=== PATIENT | male | born 1955 | race Caucasian/White ===

== ENCOUNTER 2019-10-10 12:35 | Outpatient (CLI) | payer BC, SELFPAY ==
--- NOTE | 2019-10-10 13:03 | MR_ITS ---
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 Pre and postcontrast imaging. Mild increase in cervical lordosis and thoracic kyphosis. Multilevel thoracic and cervical spondylosi s. Normal lumbar alignment. Benign hemangioma in L5. No marrow edema or fracture. Mild disc desiccation at L4-5 and L5-S1. Seen best on the sagittal STIR and postcontrast imaging is increased signal surrounding the RIGHT fac et joint at T10-11 and LEFT facet joint at T12-L1. There is soft tissue enhancement on the postcontra st sequences. Small amount of marrow edema with enhancement involving the RIGHT T11 pedicle. New sinc e 08/11/2018. Conus terminates normally at L1-2 disc level. L1-L2: Normal. L2-L3: Normal. L3-L4: Mild annular disc bulging and facet arthropathy. No stenosis. L4-L5: Mild annular disc bulging with a central disc protrusion. Mild ligamentum flavum hypertrophy a nd facet arthropathy. Mild central and subarticular recess stenosis due to disc and facet disease. Si milar to the prior study. L5-S1: Mild annular disc bulging. Disc bulging effaces and abuts the RIGHT S1 nerve root in the subar ticular recess. Mild bilateral foraminal narrowing. On the postcontrast imaging there is no evidence for discitis or osteomyelitis. MR/MR lumbar spine wo/w con [id number] IMPRESSION: 1. Mild bilateral foraminal stenosis at L5-S1. 2. Encroachment upon the RIGHT S1 nerve root in the subarticular recess as on the prior study. 3. Mild central and subarticular recess stenosis at L4-5 without progression. 4. Increased T2 signal with enhancement surrounding the RIGHT facet joint at T 10-11 and the LEFT facet joint at T12-L1 with marrow edema and enhancement in t he RIGHT T11 pedicle. Incomplete evaluation as only the lumbar spine was perfor med today. Possibility of an infectious process or inflammatory process such as synovitis or osteomyelitis should be considered. Recommend follow-up MRI thora cic spine with contrast to evaluate the facet joints and thoracic vertebral bod ies.
== END 2019-10-10 12:36 | disposition home or self-care (01) ==
LOC: RADSHAW 12:43
PROVIDERS: Family Provider Family Medicine; Visit Provider Psychiatry & Neurology Neuromuscular Medicine
DX: G62.9 Polyneuropathy, unspecified (principal); R53.1 Weakness; M48.07 Spinal stenosis, lumbosacral region; M48.061 Spinal stenosis, lumbar region without neurogenic claudication
CPT/HCPCS: 72158; A9579

== ENCOUNTER 2019-10-11 13:24 | Outpatient (CLI) | payer BC, SELFPAY ==
--- NOTE | 2019-10-11 | USCV_ITS ---
Zhao Shaq Age: 64 Gender: M : 1955 Exam Date: 10/11/2019 16:28 Ordering Phys: NOT ON FILE, DOCTOR XX Technologist: Exam Location: [facility] [place] Indication: WEAKNESS IN LEGS. PAIN. RIGHT LEFT Brachial 139.00 mmHg Brachial 132.00 mmHg Pressure (mmHg) Waveform Pressure (mmHg) Waveform Below Knee 118.00 MAT MAKER 96.00 DPA 108.00 Ankle/Brachial Index 0.78 49.00 Pre-Exercise Toe Pressure 53.00 0.35 Pre-Exercise Toe/Brachial Index 0.38 FINDINGS RT DPA: 93 RT MAT MAKER: NC Normal resting NIRALI on the right side Diminished resting NIRALI on the left side Normal resting TBI's bilaterally CONCLUSIONS Abnormal resting NIRALI and TBI on the left side, suggestive of moderate peripheral arterial disease Abnormal resting TBI with supernormal resting NIRALI on the right side, suggestive of moderate peripheral arterial disease, possibly involving the distal vessels Dr Michaelle Bey MD FAC (Electronically Signed) Final Date: 12 October 2019 01:12 S
--- NOTE | 2019-10-11 13:29 | MR_ITS ---
WS: [id number] MRI SACRUM with and without CONTRAST. COMPARISON: None Multiplanar, multisequence imaging is performed with and without contrast. Sagittal and axial T1 fat sat sequences post-ProHance 17 cc IV. No marrow signal abnormalities or fractures. There is mild atrophy involving the erector spinae muscl es at the level of the sacrum. No definite signal abnormalities or enhancement within the paraspinal muscles. No soft tissue in the sacral nerve roots. No osseous destruction. Mild diffuse thickening of the urinary bladder. MR/MR sacrum wo/w con [id number] IMPRESSION: 1. No mass identified. 2. Very mild atrophy and suspect mild myositis of the erector spinae muscles a t the level of the sacrum. 3. Diffuse bladder wall thickening. Consider cystitis or bladder outlet obstru ction.
== END 2019-10-11 13:25 | disposition home or self-care (01) ==
LOC: RADSHAW 13:25
PROVIDERS: Family Provider Family Medicine; PCP Family Medicine; Visit Provider Psychiatry & Neurology Neuromuscular Medicine
DX: G62.9 Polyneuropathy, unspecified (principal); R53.1 Weakness; R09.89 Other specified symptoms and signs involving the circulatory and respiratory systems; L81.9 Disorder of pigmentation, unspecified; M60.88 Other myositis, other site; M48.8X8 Other specified spondylopathies, sacral and sacrococcygeal region; M79.605 Pain in left leg; M79.604 Pain in right leg
CPT/HCPCS: 72158; 93923; A9579

== ENCOUNTER 2019-10-23 07:15 | Outpatient (CLI) | payer BC, SELFPAY | END 2019-10-23 07:16 | disposition home or self-care (01) | LOC: CDL 07:18 | PROVIDERS: Family Provider Family Medicine; PCP Family Medicine; Visit Provider Family Medicine | DX: Z76.89 Persons encountering health services in other specified circumstances (principal) ==

== ENCOUNTER 2019-10-24 08:36 | Outpatient (CLI) | payer BC, SELFPAY ==
--- NOTE | 2019-10-24 08:48 | MR_ITS ---
WS: [id number] MRI CERVICAL SPINE with and without contrast. HISTORY: PARALYSIS, NEUROPATHY COMPARISON: None available. Multiplanar, multisequence imaging of the cervical spine with and without contrast. Slight increase in cervical kyphosis. No fractures or marrow edema. T2 hemangioma. Signal within the cervical cord is normal. Visualized posterior fossa is unremarkable. Craniocervical junction, C1 and C2 relationship, odontoid process and soft tissues are normal. C2-C3: Normal. C3-C4: Small foraminal osteophytes with mild bilateral foraminal stenosis. C4-C5: Mild annular disc bulging with small bilateral foraminal osteophytes. Moderate LEFT foraminal narrowing. C5-C6: Mild annular disc bulging and osteophytic ridging. Mild encroachment upon the ventral thecal s ac. Moderate bilateral foraminal stenosis due to osteophyte disease. C6-C7: Diffuse annular disc bulging and osteophytic ridging. Smaller disc protrusion in the RIGHT for amen. Mild central and bilateral foraminal stenosis. C7-T1: Mild osteophytic ridging. No stenosis. No signal abnormalities or abnormal enhancement within the cervical cord. No facet joint enhancement. No discitis or osteomyelitis. MR/MR cervical spine wo/w [id number] IMPRESSION: 1. No cervical mass or abnormality noted within the cervical cord. 2. Multilevel annular disc bulging and vertebral body osteophytes. No severe c entral or foraminal stenosis. 3. Moderate bilateral foraminal stenosis at C5-6 due to disc osteophyte diseas e. 4. Moderate LEFT foraminal stenosis at C4-5 due to disc osteophyte disease.
== END 2019-10-24 08:37 | disposition home or self-care (01) ==
LOC: RADWPI 08:40
PROVIDERS: Family Provider Family Medicine; PCP Family Medicine; Visit Provider Family Medicine
DX: G83.9 Paralytic syndrome, unspecified (principal); G62.9 Polyneuropathy, unspecified; M48.02 Spinal stenosis, cervical region; M25.78 Osteophyte, vertebrae
CPT/HCPCS: 72156; A9579

== ENCOUNTER 2019-10-29 09:29 | Outpatient (CLI) | payer BC, SELFPAY ==
[2019-10-29 09:45] VITALS: BMI 26.4
--- NOTE | 2019-10-29 10:05 | ECG_ITS ---
NAME OF STUDY: LEXISCAN SESTAMIBI STRESS TEST INDICATION: Chest Pain NOTE: Please note that this is the electrocardiogram portion of the Lexiscan/Sestamibi stress test. The perfusion scan will be documented separately. DATA: Baseline heart rate was 92 beats per minute. Baseline blood pressure was 153/87 millimeters of mercury. Target heart rate was 158. Maximum heart rate achieved was 111. which was 71 % of the predicted target heart rate. Maximum blood pressure was 153/87 millimeters of mercury. The reason for ending the test was completion of the protocol. The patient did not experience any symptoms. ELECTROCARDIOGRAM: BASELINE: Sinus rhythm. Normal axis. Otherwise, no ST-T changes suggestive of ischemia noted. No arrhythmia noted. EXERCISE: After Lexiscan injection, no ST-T changes suggestive of ischemic noted. No arrhythmia noted. 1. EKG not suggestive of ischemia 2. Lexiscan injection unremarkable. 3. Perfusion scan will be documented separately. Electronically Signed On 10-29-2019 19:03:58 RN ANGIOGRAPHY by Tobi Smith M.D. [email or web address]
--- NOTE | 2019-10-29 10:06 | NMCV_ITS ---
NM marino perf SPECT r/s* [id number] Shaq Churchill Age: 64 Gender: M : 1955 Exam Date: 10/29/2019 10:30 Ordering Phys: eZb Brownlee MD Technologist: VINCE Escudero Exam Location: [facility] Indications: Chest pain STRESS TEST [facility] IMAGE PROTOCOL Rest/Stress 1 Lexiscan Day Radiopharmaceutical Dose (mCi) Administration Site Administered by Rest: Tc-99m 10.9 IV VINCE Escudero Sestamibi Stress:Tc-99m 32.6 IV VINCE Escudero Sestamibi Rest: 29-Oct-2019 60 Discovery 630 Stress: 29-Oct-2019 45 Discovery 630 0.4mg Lexiscan. Supine position only as patient was unable to lay prone. SPECT RESULTS Technical Quality: Excellent Raw Data Analysis: Normal Image Corrections: No attenuation or motion correction applied Summed Stress Score: 6 Summed Rest Score: 7 Summed Difference Score: 2 PERFUSION FINDINGS Large area of fixed perfusion defect noted from basal to distal inferior and basal to mid inferolateral wall suggestive of old myocardial infarction versus scarring. Please note that patient was not able to perform the prone images therefore cannot rule out artifact. EKG segment will be documented separately. FUNCTIONAL RESULTS (calculated via Gated SPECT) Stress Image LV EF (%): 57 Stress EDV (mL):88 TID: 1.06 Stress ESV (mL):38 Rest Image LV EF (%): 57 FUNCTIONAL FINDINGS: Basal to mid inferior wall hypokinesis IMPRESSIONS Large area of fixed perfusion defect noted from basal to distal inferior and basal to mid inferolateral wall suggestive of old myocardial infarction versus scarring. Please note that patient was not able to perform the prone images therefore cannot rule out artifact. EKG segment will be documented separately. Tobi Smith MD (Electronically Signed) Final Date: 29 October 2019 17:44 S
[2019-10-29] MEDS: regadenoson 0.4 Mg/5 ml Syringe IVP (11:53)
--- NOTE | 2019-10-29 11:54 | SUR.PREOP ---
Patient reports no pain or discomfort prior to the start of the procedure.
[2019-10-29 12:05] VITALS: BP 120/75; PULSE 99
== END 2019-10-29 09:30 | disposition home or self-care (01) ==
PROVIDERS: Family Provider Family Medicine; PCP Family Medicine; Visit Provider Family Medicine
DX: R07.9 Chest pain, unspecified (principal)
CPT/HCPCS: 78452; 93017; A9500; J2785

== ENCOUNTER 2019-11-20 09:20 | Outpatient (CLI) | payer BC, SELFPAY ==
--- NOTE | 2019-11-20 | XR_ITS ---
WS: [id number] CHEST 2 VIEWS HISTORY: SHORTNESS OF BREATH COMPARISON: 09/19/2019 Lungs: Benign granuloma in the central LEFT lung. Normal vasculature. No pneumonia. Slight elevation of the LEFT hemidiaphragm is stable. Cardiac size: Normal. Mediastinum/Aorta: Normal mediastinum. Bones: Normal. XR/XR chest 2V* [id number] IMPRESSION: Prior granulomatous disease. No pneumonia.
== END 2019-11-20 09:21 | disposition home or self-care (01) ==
LOC: RADOUTREAD 11:37
PROVIDERS: Family Provider Family Medicine; PCP Family Medicine; Visit Provider Nurse Practitioner Family
DX: Z76.89 Persons encountering health services in other specified circumstances (principal)

== ENCOUNTER 2019-11-20 17:29 | Inpatient (IN) | payer BC, SELFPAY ==
[2019-11-20] VITALS (23 sets, daily range): BP systolic 119–221; BP diastolic 80–157; PULSE 114–137; RESP 20–38; TEMP 36.8–38.8; O2SAT 67–99
--- NOTE | 2019-11-20 17:37 | ED_ITS ---
Entered by Liza Ross, acting as scribe for Nov 20, 2019 17:29 HPI - SOB/Dyspnea General: Chief Complaint: Shortness of Breath/Dyspnea Stated Complaint: cp Time Seen by Provider: 11/20/19 17:38 Source: patient Mode of arrival: wheelchair Limitations: no limitations History of Present Illness: HPI Narrative: 64 yo Male presents to ED with complaint of shortness of breath and chest pain. Pt states that he started feeling short of breath yesterday. Pt's oxygen saturation was in the 60s when he arrived to the ED. Pt states that he is also having chest pain. Pt was unable to speak in sentences. Per Pt's sister, the patient had a DVT about 3 weeks ago. MD elicited complaint: shortness of breath and chest pain Onset (ago): day(s) Timing: progressively worsening Severity: severe Exacerbating factors: exertion Relieving factors: oxygen Associated symptoms: Reports chest pain; Deny abdominal pain, fever(s), nausea, polydipsia, polyuria or vomiting Treatment prior to arrival: none Review of Systems General: Reports: 10 or more systems reviewed and unremarkable except in HPI and below Narrative: Unable to speak in full sentences, can only speak in a few words at a time Const: Denies: fever Eyes: Denies: change in vision or blurry vision ENMT: Denies: throat pain, enlarged tonsils, painful swallowing, hoarseness, mouth pain or swelling of lips/tongue Card: Reports: chest pain Resp: Reports: shortness of breath; Denies: productive cough or non-productive cough GI: Denies: abdominal pain, nausea or vomiting : Denies: flank pain, painful urination, urinary frequency, urinary urgency or urinary hesitancy Musc: Denies: neck pain, back pain or extremity swelling Skin/Breast: Denies: rash, itching or redness Neuro: Denies: headache, numbness in extremities or weakness in extremities Endo: Denies: excessive urination, excessive thirst or tired all the time [facility] ED PFSH: Family History Other CHF (congestive heart failure) Heart disease Social History Smoking and tobacco status: never smoked Physical Exam Const: COMMON NORMALS: average body habitus, oriented x3, no limitations, healthy appearing, alert and well nourished HENMT: COMMON NORMALS: normocephalic, head/scalp atraumatic and moist oral mucous membranes HEAD & SCALP: normocephalic and atraumatic Eye: COMMON NORMALS: PERRL, EOMs intact bilaterally, conjunctivae normal and no scleral icterus CONJUNCTIVA: Yes conjunctivae normal PUPIL: Yes PERRL Neck/C-Spine: COMMON NORMALS: full ROM, supple, no meningeal signs, no JVD and no carotid bruits Chest: COMMONS NORMALS: inspection of chest normal and palpation of chest normal Resp: COMMON NORMALS: percussion normal; negative for clear to auscultation bilaterally EFFORT & INSPECTION: No able to speak in complete sentences, Yes tachypneic, Yes respiratory distress, Yes labored and Yes uses accessory muscles AUSCULTATION: not clear to auscultation bilaterally and diminished lung sounds bilateral PERCUSSION: percussion normal Cardio: COMMON NORMALS: no JVD, regular rate, regular rhythm, S1 normal heart sound, S2 normal heart sound, no gallops, no clicks, no murmurs, no rub and peripheral pulses 2+ throughout RATE: regular rate and tachycardic RHYTHM: regular rhythm HEART SOUNDS: S1 normal and S2 normal PERIPHERAL PULSES: pulses 2+ throughout GI: COMMON NORMALS: normal to inspection, nondistended, normoactive bowel sounds, soft to palpation, non-tender, no hepatosplenomegaly, no masses and no bruits PALPATION: Yes soft and Yes no hepatosplenomegaly : COMMON NORMALS: Yes no CVA tenderness BLADDER/KIDNEY EXAM: Yes no CVA tenderness Back/Pelvis: COMMON NORMALS: no CVA tenderness Extremity: COMMON NORMALS: normal to inspection, full ROM, normal capillary refill, no calf tenderness and no pedal edema Neuro: COMMON NORMALS: oriented x3 SENSORIUM/ORIENTATION: Yes alert MENINGEAL SIGNS: Yes no meningeal signs Skin: COMMON NORMALS: no rashes or lesions noted, no wounds, skin turgor normal, no jaundice, no petechiae and no mottling GENERAL SKIN EXAM: no rashes or lesions noted and turgor normal Course Consultations: Consultation #1: Dr. Brownlee, the patient's primary care provider. He kindly accepted the patient to his service. Vital Signs: Vital signs: Vital Signs Pulse Rate 132 H 11/20/19 23:29 Respiratory Rate 26 H 11/20/19 23:29 Blood Pressure 173/109 11/20/19 23:00 Pulse Oximetry 93 11/20/19 23:29 MDM - SOB/Dyspnea MDM Narrative: Medical decision making narrative: This 64-year-old gentleman presents to the emergency department in respiratory failure. When he arrived his oxygen saturation was in the 60s on room air. He was only able to speak with a few words at a time. He was tachypneic, using his accessory muscles of respiration. A CTA was negative for PE, however showed a right-sided pneumonia. He also has a UTI and is positive for influenza. The patient was placed on a BiPAP on arrival to the emergency department as oxygen via nasal cannula did not improve his oxygen significantly. The patient improved rapidly on the BiPAP, his respiratory rate decreased, pallor and diaphoresis resolved. He is admitted to the ICU for further evaluation and management. Baseline troponin was elevated as well as the 2-hour period delta was significant. However on discussing with his primary care provider it was felt that this may have been secondary to demand ischemia from severe hypoxia. We will therefore wait for 6-hour troponin for further evaluation and to make a final determination to see if he needs cardiac work-up. Medical Records: Attestation: I reviewed the patient's medical records. Lab Data: Attestation: I reviewed the patient's lab results. Labs: Lab Results 11/20/19 11/20/19 11/20/19 Range/Units 17:40 17:40 17:40 WBC 20.4 H (4.0-10.0) 10^3/ uL RBC 5.63 H (4.1-5.3) 10^6/u L Hgb 14.3 (11.7-16.6) g/dL Hct 46.1 (42.0-52.0) % MCV 81.9 (80-94) fL MCH 25.4 L (28.0-34.0) pg MCHC 31.0 (30.0-36.0) g/dL RDW 13.9 (12.1-15.1) % Plt Count 421 H (130-400) 10^3/c mm MPV 9.8 (7.4-10.4) fL Neut % (Auto) 92.5 % Lymph % (Auto) 3.0 % Nelson % (Auto) 3.3 % Eos % (Auto) 0.2 % Baso % (Auto) 0.4 % Neut # (Auto) 18.9 H (1.8-7.7) 10^3/u L Lymph # (Auto) 0.6 L (0.8-4.8) 10^3/u L Nelson # (Auto) 0.7 (0.2-0.9) 10^3/u L Eos # (Auto) 0.0 (0.0-0.8) 10^3/u L Baso # (Auto) 0.1 (0.0-0.1) 10^3/u L Nucleated RBC % (a uto) 0 % Nucleated RBCs # 0.0 /100WBC D-Dimer 1.37 H (0-0.59) ug/mIFE U Specimen Type Sample Site ABG pH (7.35-7.45) ABG pCO2 (35-45) mmHg ABG pO2 (80.0-100.0) mmH g ABG HCO3 (22-26) mmol/L ABG Base Excess (-2.0-2.0) mmol/ L Ramu Test Hematocrit (42-52) % Hgb O2 Saturation (95-100) % Carboxyhemoglobin (0.4-20.1) %THgb Methemoglobin (0.4-1.5) % Total Hemoglobin (14-18) g/dL O2 Delivery Device FiO2 % Mass Spec ID Sodium 130 L (136-145) mmol/L Potassium 4.7 (3.5-5.1) mmol/L Chloride 87 L (98-107) mmol/L Carbon Dioxide 29 (22-29) mmol/L Anion Gap 18.7 (5-19) BUN 9 (8-23) mg/dL Creatinine 0.7 (0.7-1.2) mg/dL GFR Calculation 113.5 (90-130) mL/min Glucose 221 H (65-115) mg/dL POC Glucose (70-110) mg/dL Calcium 10.2 (8.5-10.5) mg/dL Total Bilirubin 0.6 (0.15-1.2) mg/dL AST 19 (0-40) U/L ALT 11 (0-41) U/L Alkaline Phosphata se 102 (40-130) IU/L Troponin T Baselin e (0-15) ng/mL Troponin T 120 Min [place] (0-15) ng/mL Delta Troponin T (0-10) ABS# NT-Pro-B Natriuret Pep 264 H (0-125) pg/mL Total Protein 7.8 (6.6-8.7) g/dL Albumin 4.3 (3.5-5.2) g/dL Globulin 3.5 (1.3-4.6) g/dL Urine Color (Yellow) Urine Appearance (CLEAR) Urine pH (5-7) Ur Specific Gravit y (1.005-1.030) Urine Protein (Negative) Urine Glucose (UA) (Normal) Urine Ketones (Negative) Urine Blood (Negative) Urine Nitrate (Negative) Urine Bilirubin (NEGATIVE) Urine Urobilinogen (Negative) mg/dL Ur Leukocyte [place] ase (Negative) Urine RBC (0-2) /hpf Urine WBC (0-5) /hpf Ur Squamous Epith Cells (0-5) Urine Bacteria (NONE) Influenza Type A A g (Negative) POC Influenza B Ag (Negative) 11/20/19 11/20/19 11/20/19 Range/Units 17:40 17:43 18:08 WBC (4.0-10.0) 10^3/ uL RBC (4.1-5.3) 10^6/u L Hgb (11.7-16.6) g/dL Hct (42.0-52.0) % MCV (80-94) fL MCH (28.0-34.0) pg MCHC (30.0-36.0) g/dL RDW (12.1-15.1) % Plt Count (130-400) 10^3/c mm MPV (7.4-10.4) fL Neut % (Auto) % Lymph % (Auto) % Nelson % (Auto) % Eos % (Auto) % Baso % (Auto) % Neut # (Auto) (1.8-7.7) 10^3/u L Lymph # (Auto) (0.8-4.8) 10^3/u L Nelson # (Auto) (0.2-0.9) 10^3/u L Eos # (Auto) (0.0-0.8) 10^3/u L Baso # (Auto) (0.0-0.1) 10^3/u L Nucleated RBC % (a uto) % Nucleated RBCs # /100WBC D-Dimer (0-0.59) ug/mIFE U Specimen Type Arterial Sample Site Radial, left ABG pH 7.27 L (7.35-7.45) ABG pCO2 67.6 H* (35-45) mmHg ABG pO2 256.0 H* (80.0-100.0) mmH g ABG HCO3 31.0 H (22-26) mmol/L ABG Base Excess 2.0 (-2.0-2.0) mmol/ L Ramu Test Pos Hematocrit 44.5 (42-52) % Hgb O2 Saturation 97.7 (95-100) % Carboxyhemoglobin 1.3 (0.4-20.1) %THgb Methemoglobin 0.9 (0.4-1.5) % Total Hemoglobin 14.5 (14-18) g/dL O2 Delivery Device Bipap FiO2 100.0 % Mass Spec ID ed Sodium (136-145) mmol/L Potassium (3.5-5.1) mmol/L Chloride (98-107) mmol/L Carbon Dioxide (22-29) mmol/L Anion Gap (5-19) BUN (8-23) mg/dL Creatinine (0.7-1.2) mg/dL GFR Calculation (90-130) mL/min Glucose (65-115) mg/dL POC Glucose 205 (70-110) mg/dL Calcium (8.5-10.5) mg/dL Total Bilirubin (0.15-1.2) mg/dL AST (0-40) U/L ALT (0-41) U/L Alkaline Phosphata se (40-130) IU/L Troponin T Baselin e 93 H (0-15) ng/mL Troponin T 120 Min [place] (0-15) ng/mL Delta Troponin T (0-10) ABS# NT-Pro-B Natriuret Pep (0-125) pg/mL Total Protein (6.6-8.7) g/dL Albumin (3.5-5.2) g/dL Globulin (1.3-4.6) g/dL Urine Color (Yellow) Urine Appearance (CLEAR) Urine pH (5-7) Ur Specific Gravit y (1.005-1.030) Urine Protein (Negative) Urine Glucose (UA) (Normal) Urine Ketones (Negative) Urine Blood (Negative) Urine Nitrate (Negative) Urine Bilirubin (NEGATIVE) Urine Urobilinogen (Negative) mg/dL Ur Leukocyte [place] ase (Negative) Urine RBC (0-2) /hpf Urine WBC (0-5) /hpf Ur Squamous Epith Cells (0-5) Urine Bacteria (NONE) Influenza Type A A g (Negative) POC Influenza B Ag (Negative) 11/20/19 11/20/19 11/20/19 Range/Units 18:25 19:58 20:35 WBC (4.0-10.0) 10^3/ uL RBC (4.1-5.3) 10^6/u L Hgb (11.7-16.6) g/dL Hct (42.0-52.0) % MCV (80-94) fL MCH (28.0-34.0) pg MCHC (30.0-36.0) g/dL RDW (12.1-15.1) % Plt Count (130-400) 10^3/c mm MPV (7.4-10.4) fL Neut % (Auto) % Lymph % (Auto) % Nelson % (Auto) % Eos % (Auto) % Baso % (Auto) % Neut # (Auto) (1.8-7.7) 10^3/u L Lymph # (Auto) (0.8-4.8) 10^3/u L Nelson # (Auto) (0.2-0.9) 10^3/u L Eos # (Auto) (0.0-0.8) 10^3/u L Baso # (Auto) (0.0-0.1) 10^3/u L Nucleated RBC % (a uto) % Nucleated RBCs # /100WBC D-Dimer (0-0.59) ug/mIFE U Specimen Type Sample Site ABG pH (7.35-7.45) ABG pCO2 (35-45) mmHg ABG pO2 (80.0-100.0) mmH g ABG HCO3 (22-26) mmol/L ABG Base Excess (-2.0-2.0) mmol/ L Ramu Test Hematocrit (42-52) % Hgb O2 Saturation (95-100) % Carboxyhemoglobin (0.4-20.1) %THgb Methemoglobin (0.4-1.5) % Total Hemoglobin (14-18) g/dL O2 Delivery Device FiO2 % Mass Spec ID Sodium (136-145) mmol/L Potassium (3.5-5.1) mmol/L Chloride (98-107) mmol/L Carbon Dioxide (22-29) mmol/L Anion Gap (5-19) BUN (8-23) mg/dL Creatinine (0.7-1.2) mg/dL GFR Calculation (90-130) mL/min Glucose (65-115) mg/dL POC Glucose (70-110) mg/dL Calcium (8.5-10.5) mg/dL Total Bilirubin (0.15-1.2) mg/dL AST (0-40) U/L ALT (0-41) U/L Alkaline Phosphata se (40-130) IU/L Troponin T Baselin e (0-15) ng/mL Troponin T 120 Min [place] 136.6 H (0-15) ng/mL Delta Troponin T 43.6 H* (0-10) ABS# NT-Pro-B Natriuret Pep (0-125) pg/mL Total Protein (6.6-8.7) g/dL Albumin (3.5-5.2) g/dL Globulin (1.3-4.6) g/dL Urine Color Yellow (Yellow) Urine Appearance Hazy A (CLEAR) Urine pH 5 (5-7) Ur Specific Gravit y 1.020 (1.005-1.030) Urine Protein 3+ H (Negative) Urine Glucose (UA) Norm (Normal) Urine Ketones 1+ H (Negative) Urine Blood 3+ H (Negative) Urine Nitrate Positive H (Negative) Urine Bilirubin Neg (NEGATIVE) Urine Urobilinogen Norm (Negative) mg/dL Ur Leukocyte [place] Trace H (Negative) Urine RBC 10-15 H (0-2) /hpf Urine WBC 25-40 H (0-5) /hpf Ur Squamous Epith Cells 0-4 H (0-5) Urine Bacteria 3+ H (NONE) Influenza Type A A g Positive H (Negative) POC Influenza B Ag Negative (Negative) Imaging Data^: CTA Chest: Radiologist's impression: [address] [address] [address] Scan Report Signed Patient: Shaq Churchill #: [id number] : 5Acct#:[id number] Age/Sex: 64 / MADM Date: 11/20/19 Loc: ERRoom/Bed: Attending Dr: Ordering Provider/Ordering MD: Cammy Philippe MD, [facility] [place] of Service: 11/20/19 Procedure(s): CT angio chest PE protcl [id number] Accession Number(s): [id number] Report Number: [id number] PROCEDURE INFORMATION: Exam: CT Angiography Chest With Contrast Exam date and time: 11/20/2019 6:47 PM Age: 64 years old Clinical indication: Shortness of breath; Additional info: Hypoxia, tachycardia TECHNIQUE: Imaging protocol: Computed tomographic angiography of the chest with intravenous contrast. 3D rendering: MIP and/or 3D reconstructed images were created by the technologist. Total DLP: 625.91 mGy-cm Radiation optimization: All CT scans at this facility use at least one of these dose optimization techniques: automated exposure control; mA and/or kV adjustment per patient size (includes targeted exams where dose is matched to clinical indication); or iterative reconstruction. Contrast material: OMNI 350; Contrast volume: 95 ml; Contrast route: IV; COMPARISON: CTA Chest-Pulmonary Emb [id number] 09/19/2019 5:04 PM FINDINGS: Pulmonary arteries: Normal. No pulmonary emboli. Aorta: Unremarkable. No aortic aneurysm. No aortic dissection. Lungs: Small regions of ground-glass opacity in the suprahilar right upper lobe and infrahilar left lower lobe. Calcified granuloma in the left lower lobe. Pleural space: Unremarkable. No pneumothorax. No pleural effusion. Heart: Unremarkable. No cardiomegaly. No pericardial effusion. Stomach and bowel: Small duodenal diverticulum. Lymph nodes: Mediastinal lymph nodes measure up to 10 mm short axis dimension. Calcified mediastinal and left hilar lymph nodes. Bones/joints: Mild thoracic scoliosis. Soft tissues: Unremarkable. CT/CT angio chest PE protcl [id number] IMPRESSION: 1. No evidence pulmonary embolus. 2. Small ground-glass opacities in the right upper and lower lobes could represent pneumonia or aspiration. 3. Prominent mediastinal lymph nodes are most likely reactive. Radiation Dose CTDIVOL = (mGy): DLP = 625.91 (mGy-cm) Dictated By:Kg Rojas Signed By:Kg RojasSignbaltazar Date/Time:11/20/192012 DD/ 10 EKG Data^: EKG 1: Attestation: I personally reviewed and interpreted this EKG as follows: EKG Interpretation Date: 11/20/19 EKG interpretation time: 17:49 Prior EKG tracings: not available for review Ischemic changes: q waves Interpretation: Sinus tachycardia. Heart rate 131. Q waves in 2 3 and aVF. Q wave in V3 V4 V5 and V6. EKG 2: Attestation: I personally reviewed and interpreted this EKG as follows: EKG Interpretation Date: 11/20/19 EKG interpretation time: 19:46 Prior EKG tracings: available for review Interpretation: Heart rate 115. Otherwise unchanged EKG. Sinus tachycardia EKG 3: Attestation: I personally reviewed and interpreted this EKG as follows: EKG Interpretation Date: 11/20/19 EKG interpretation time: 23:28 Prior EKG tracings: available for review Interpretation: Unchanged from earlier today. Critical Care Time Critical Care Time: Critical Care Time: Yes Total Critical Care Time: 30 Attestation: This case had a high probability of a clinically significant, sudden, or life threatening deterioration of this patient's condition which required my full and direct attention, intervention and personal management. Discharge Plan Discharge Admit Provider: Zeb Brownlee Coding Level of Care Code ED Tank Insulator Rubber for Chg Fwd Exam Comprehensive The documentation recorded by the Cody ferrara Carmen, accurately reflects the service I personally performed and the decisions made by me, Cammy Philippe MD, [facility] [place] Nov 20, 2019 17:29
[2019-11-20 17:47] LABS: Glucose Point of Care 205 mg/dL (70-110)
--- NOTE | 2019-11-20 17:52 | CTR_ITS ---
PROCEDURE INFORMATION: Exam: CT Angiography Chest With Contrast Exam date and time: 11/20/2019 6:47 PM Age: 64 years old Clinical indication: Shortness of breath; Additional info: Hypoxia, tachycardia TECHNIQUE: Imaging protocol: Computed tomographic angiography of the chest with intravenous contrast. 3D rendering: MIP and/or 3D reconstructed images were created by the technologist. Total DLP: 625.91 mGy-cm Radiation optimization: All CT scans at this facility use at least one of these dose optimization techniques: automated exposure control; mA and/or kV adjustment per patient size (includes targeted exams where dose is matched to clinical indication); or iterative reconstruction. Contrast material: OMNI 350; Contrast volume: 95 ml; Contrast route: IV; COMPARISON: CTA Chest-Pulmonary Emb [id number] 09/19/2019 5:04 PM FINDINGS: Pulmonary arteries: Normal. No pulmonary emboli. Aorta: Unremarkable. No aortic aneurysm. No aortic dissection. Lungs: Small regions of ground-glass opacity in the suprahilar right upper lobe and infrahilar left lower lobe. Calcified granuloma in the left lower lobe. Pleural space: Unremarkable. No pneumothorax. No pleural effusion. Heart: Unremarkable. No cardiomegaly. No pericardial effusion. Stomach and bowel: Small duodenal diverticulum. Lymph nodes: Mediastinal lymph nodes measure up to 10 mm short axis dimension. Calcified mediastinal and left hilar lymph nodes. Bones/joints: Mild thoracic scoliosis. Soft tissues: Unremarkable. CT/CT angio chest PE protcl [id number] IMPRESSION: 1. No evidence pulmonary embolus. 2. Small ground-glass opacities in the right upper and lower lobes could represent pneumonia or aspiration. 3. Prominent mediastinal lymph nodes are most likely reactive. Radiation Dose CTDIVOL = (mGy): DLP = 625.91 (mGy-cm)
--- NOTE | 2019-11-20 17:56 | ECG_ITS ---
Measurements Intervals [place] Rate: 131 P: 40 LA: 137 QRS: 22 QRSD: 106 T: 36 QT: 310 QTc: 459 SINUS TACHYCARDIA INFERIOR MYOCARDIAL INFARCTION , PROBABLY OLD [40+ ms Q WAVE AND/OR ST/T AB ABNORMALITY IN II/aVF] Compared to ECG 09/19/2019 16:41:34 Myocardial infarct finding now present Electronically Signed On 11-20-2019 19:47:01 FABRIC CUTTER by Michaelle Bey M.D. [id number]
[2019-11-20 18:15] LABS: Basophils # 0.1 10^3/uL (0.0-0.1); Basophils % 0.4 %; Eosinophils % 0.2 %; Hematocrit 46.1 % (42.0-52.0); Hemoglobin 14.3 g/dL (11.7-16.6); Lymphocytes # 0.6 10^3/uL (0.8-4.8); Mean Corpuscular Hemoglobin 25.4 pg (28.0-34.0); Mean Corpuscular Volume 81.9 fL (80-94); Mean Platelet Volume 9.8 fL (7.4-10.4); Monocytes # 0.7 10^3/uL (0.2-0.9); Monocytes % 3.3 %; Neutrophils # 18.9 10^3/uL (1.8-7.7); Neutrophils % 92.5 %; Nucleated Red Blood Cells % 0 %; Platelet Count 421 10^3/cmm (130-400); Red Blood Count 5.63 10^6/uL (4.1-5.3); Red Cell Distribution Width 13.9 % (12.1-15.1); White Blood Count 20.4 10^3/uL (4.0-10.0)
[2019-11-20 18:19] LABS: ABG PCO2 67.6 mmHg (35-45); ABG PH Result 7.27 (7.35-7.45); Arterial Blood Gas Hematocrit 44.5 % (42-52); Blood Gas Allen Test Pos; Blood Gas Sample Site Radial, left; Blood Gas Sample Type Arterial; Carboxyhemoglobin 1.3 %THgb (0.4-20.1); HGB O2 Sat 97.7 % (95-100); Methemoglobin 0.9 % (0.4-1.5); Oxygen Device BIPAP; Total Hemoglobin 14.5 g/dL (14-18)
[2019-11-20 18:30] LABS: Troponin(5th) Baseline 93 ng/mL (0-15)
[2019-11-20 18:36] LABS: Alanine Aminotransferase 11 U/L (0-41); Albumin Level 4.3 g/dL (3.5-5.2); Alkaline Phosphatase 102 IU/L (40-130); Anion Gap 18.7 (5-19); Aspartate Amino Transferase 19 U/L (0-40); Blood Urea Nitrogen 9 mg/dL (8-23); Calcium 10.2 mg/dL (8.5-10.5); Carbon Dioxide 29 mmol/L (22-29); Chloride 87 mmol/L (98-107); Globulin 3.5 g/dL (1.3-4.6); Glomerular Filtration Rate 113.5 mL/min (90-130); Glucose 221 mg/dL (65-115); NT Pro B Type Natriuretic Pept 264 pg/mL (0-125); Potassium 4.7 mmol/L (3.5-5.1); Sodium 130 mmol/L (136-145); Total Bilirubin 0.6 mg/dL (0.15-1.2); Total Protein 7.8 g/dL (6.6-8.7)
[2019-11-20 18:41] LABS: D Dimer 1.37 ug/mIFEU (0-0.59)
[2019-11-20 19:25] LABS: Influenza A by IFA Positive (Negative); Influenza B by IFA Negative (Negative)
[2019-11-20] MEDS: iohexol 350 mg/mL 100 mL Btl 95 ML IV (19:30)
--- NOTE | 2019-11-20 19:56 | ECG_ITS ---
Measurements Intervals [place] Rate: 115 P: 44 TN: 112 QRS: 38 QRSD: 93 T: 52 QT: 342 QTc: 473 SINUS TACHYCARDIA WITH SHORT TN INTERVAL ABNORMAL RHYTHM ECG Compared to ECG 11/20/2019 17:49:16 Short TN interval now present Myocardial infarct finding no longer present Electronically Signed On 11-21-2019 15:19:18 VICE PRESIDENT [employer]ES by Salomon Duncan M.D. [id number] f
[2019-11-20 20:31] LABS: Troponin 5 2HR 136.6 ng/mL (0-15); Troponin 5 2HR Delta 43.6 ABS# (0-10)
--- NOTE | 2019-11-20 20:32 | PC.NURSE ---
Received critical value 2 hour troponin of 136.6 and delta of 43.6, advised dr kelly.
[2019-11-20] MEDS: oseltamivir phosphate 75 mg Capsule PO (21:10)
[2019-11-20] MEDS: piperacillin-tazobactam 3.375 GM in sodium chloride 0.9% (plus) 50 ML IV (21:10)
[2019-11-20 21:24] LABS: Bilirubin Urine Neg (NEGATIVE); Blood Urine 3+ (Negative); Glucose Urine UA Norm (Normal); Ketones Urine 1+ (Negative); Leukocyte Esterase Urine Trace (Negative); Nitrate Urine Positive (Negative); Protein Urine 3+ (Negative); Urine Appearance Hazy (CLEAR); Urine Color Yellow (Yellow); Urobilinogen Urine Norm (Negative); pH Urine 5 (5-7)
[2019-11-20 21:27] LABS: Add Urine Culture? Yes; Bacteria Urine 3+; Squamous Epithelial Cell Urine 0-4 (0-5); WBC Urine 25-40 /hpf (0-5)
[2019-11-20] MEDS: nitroglycerin 1 gm/inch oint Pkt 1 INCH TOPICAL (21:59)
[2019-11-20] MEDS: ondansetron 2 mg/ML SDV 2 mL 4 MG IVP (21:59)
[2019-11-20] MEDS: sodium chloride 0.9% 1,000 ML 100 ML IV (22:22)
[2019-11-20] MEDS: enoxaparin 40 mg/0.4 mL Syringe SUBCUT (22:22)
[2019-11-20] MEDS: ipratropium-albuterol 3 mL Neb INHALATION (23:28)
--- NOTE | 2019-11-20 23:56 | ECG_ITS ---
Measurements Intervals [place] Rate: 132 P: 56 NM: 108 QRS: 53 QRSD: 97 T: 63 QT: 327 QTc: 485 SINUS TACHYCARDIA WITH SHORT NM INTERVAL MODERATE ST DEPRESSION [0.05+ mV ST DEPRESSION] Compared to ECG 11/20/2019 17:49:16 Short NM interval now present ST (T wave) deviation now present Myocardial infarct finding no longer present Electronically Signed On 11-21-2019 15:20:54 RETAIL AREA MANAGER by Salomon Duncan M.D. [id number]
[2019-11-21] VITALS (38 sets, daily range): BP systolic 96–179; BP diastolic 60–118; PULSE 105–134; RESP 13–31; TEMP 36.9–39; O2SAT 86–97
[2019-11-21 00:19] LABS: ABG PH Result 7.23 (7.35-7.45); Arterial Blood Gas Hematocrit 40.1 % (42-52); Base Excess ABG 2.3 mmol/L (-2.0-2.0); Blood Gas Allen Test Pos; Blood Gas Sample Site Radial, right; Blood Gas Sample Type Arterial; HCO3 ABG 32.2 mmol/L (22-26); Oxygen Device BIPAP; PO2 ABG 71.2 mmHg (80.0-100.0)
[2019-11-21 00:20] LABS: ABG PCO2 77.1 mmHg (35-45)
--- NOTE | 2019-11-21 00:29 | PC.NURSE ---
2338 rcvd pt via stretcher from ed. bilat piv SL , pt on bipap during transport. labored respirations c retractions noted. pt able to speak in 1-2 word sentences. ax t.101.[address] tovar. order for abgs now and pr tylenol rcvd. [address] tovar. rt in icu. suggested avap mode on bipap x 1 hr prior to deciding to intubated. rt to make changes.ami lozada rn.
[2019-11-21] MEDS: sodium chloride 0.9% 1,000 ML 100 ML IV ×2 (00:44→10:59)
[2019-11-21] MEDS: acetaminophen 650 mg Supp PR (00:45)
[2019-11-21] MEDS: levofloxacin-dextrose 5 % 750 MG/150 ML PREMIX 150 MG IV (00:45)
[2019-11-21 02:05] LABS: Arterial Blood Gas Hematocrit 38.3 % (42-52); Base Excess ABG 4.5 mmol/L (-2.0-2.0); Blood Gas Allen Test Pos; Blood Gas Sample Site Radial, right; Blood Gas Sample Type Arterial; Blood Gas Tidal Volume 0.55; HCO3 ABG 32.9 mmol/L (22-26); Oxygen Device BIPAP
[2019-11-21 02:06] LABS: ABG PCO2 67.5 mmHg (35-45)
--- NOTE | 2019-11-21 02:26 | PC.NURSE ---
abgs sent to dr. tovar. will continue avap mode on bipap mireya alaniz.
[2019-11-21 04:31] LABS: Basophils % 0.3 %; Eosinophils % 0.1 %; Hematocrit 37.8 % (42.0-52.0); Hemoglobin 11.4 g/dL (11.7-16.6); Lymphocytes # 0.5 10^3/uL (0.8-4.8); Lymphocytes % 4.1 %; Mean Corpuscular HGB Conc 30.2 g/dL (30.0-36.0); Mean Corpuscular Hemoglobin 24.4 pg (28.0-34.0); Mean Corpuscular Volume 80.8 fL (80-94); Mean Platelet Volume 10.2 fL (7.4-10.4); Monocytes # 0.6 10^3/uL (0.2-0.9); Monocytes % 4.7 %; Neutrophils # 10.7 10^3/uL (1.8-7.7); Neutrophils % 90.2 %; Nucleated Red Blood Cells % 0 %; Platelet Count 284 10^3/cmm (130-400); Red Blood Count 4.68 10^6/uL (4.1-5.3); Red Cell Distribution Width 13.9 % (12.1-15.1); White Blood Count 11.8 10^3/uL (4.0-10.0)
[2019-11-21 04:45] LABS: Anion Gap 14.7 (5-19); Blood Urea Nitrogen 10 mg/dL (8-23); Calcium 9.4 mg/dL (8.5-10.5); Carbon Dioxide 29 mmol/L (22-29); Chloride 91 mmol/L (98-107); Glomerular Filtration Rate 167.4 mL/min (90-130); Glucose 187 mg/dL (65-115); Osmolality Calculated 271 mOsm/kg (285-295); Potassium 4.7 mmol/L (3.5-5.1); Sodium 130 mmol/L (136-145)
[2019-11-21] MEDS: piperacillin-tazobactam 3.375 GM in sodium chloride 0.9% (plus) 50 ML IV ×3 (04:56→20:43)
[2019-11-21 05:50] LABS: ABG PH Result 7.27 (7.35-7.45); Arterial Blood Gas Hematocrit 37.4 % (42-52); Blood Gas Allen Test Pos; Blood Gas Sample Site Radial, right; Blood Gas Sample Type Arterial; Oxygen Device BIPAP; PO2 ABG 84.1 mmHg (80.0-100.0)
[2019-11-21 05:51] LABS: ABG PCO2 72.6 mmHg (35-45)
--- NOTE | 2019-11-21 06:17 | PC.NURSE ---
phone call from dr. tovar update provided. jazmin continue current care. mireya alaniz.
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
[2019-11-21] MEDS: oseltamivir phosphate 75 mg Capsule PO ×2 (08:56→16:11)
[2019-11-21] MEDS: aspirin 325 mg EC Tablet PO (08:57)
--- NOTE | 2019-11-21 10:20 | PC.CHAP ---
Pastoral Care Encounter/Spiritual Assessment Type of Contact [] Declined field education director visit [] Patient/Family/Request visit [] Outpatient visit [] Follow-up visit [] Physician referral [] Code/Alert [x] Routine visit [] Staff referral [] Actively dying [] Patient sleeping [x] Family support [] [] Out of room [] Palliative care [] [] Receiving care in room [] Pre-surgical visit [] Trauma [] Long length of stay [x] ICU visit [] Other: Relational/Emotional Strength [] Patient feels connected with others/family/visitors/staff [] Distress [] Loneliness/isolation [] Abandonment Spirituality of Patient [] Person of Tammie [] Attends Restoration of their Tammie [x] Believes in Prayer [] Reads Bible or Judaism materials [] There are Spiritual issues to be addressed Franchise Business Consultant Interventions [x] Prayer [] Active listening [] Non-anxious presence [] Spiritual/emotional support [] Crisis/trauma care [] Spiritual counseling [] Bereavement support [] Provided bereavement packet [] Provided Bible/devotional materials [] Provided toy/stuffed animal, coloring book to patient or family member [] Provided Communion [] Anointing/[place] [] Salvation [x] Completed spiritual assessment [] Other: Impact on Illness or Injury [] Angry [] Fearful [] Anxious [] Often cries [] Exhaustion [] Unable to work [] Unable to attend episcopalian [] Unable to walk/stand [] Unable to read [] Unable to drive [] Unable to eat/drink [] Unable to sleep [] Unable to be with family [] Patient intubated [x] Other: mask and gloves required Summary patient on respirator. patient's son present. Time spent with patient 10min
--- NOTE | 2019-11-21 11:09 | PM.CONSULT ---
Providers/Reason For Consult Consulting Physican/Specialty*: Dr. Peters, Cardiology Reason for Consult*: Abnormal troponin Attending Physician: Zeb Brownlee MD Primary Care Provider: Zeb Brownlee MD History of Present Illness History of Present Illness Shaq Churchill is a 64 year old male with past medical history of hypertension, hyperlipidemia, diabetes mellitus type 2, neuropathy presented to the hospital with fever worsening cough and shortness of breath. EKG showed sinus tachycardia with moderate ST depression. CT angiogram of chest showed no evidence of pulmonary embolism. He was noted to have small ground glass opacities in right upper and lower lobes with prominent mediastinal lymph nodes. Baseline troponin T of 93 ng/ml that increased to 137 ng/ml and 6 hour troponin I to 151 ng/ml. NT proBNP of 264. He was also found to be Inflenza A +. I have been asked to evaluate the patient for elevated troponin and history of chest discomfort. At the time of examination patient is on BiPAP with oxygen saturation ranging in low 90s. His other problem include progressively worsening neuropathy, polyarthritis and worsening YOUNGER. He has undergone neurological and rheumatological work up without any specific diagnosis so far. Review of Systems General: Reports: ROS unobtainable due to medical condition (except as mentioned below) Const: Reports: fever, body aches and malaise Card: Reports: chest pain (with coughing) and edema Resp: Reports: shortness of breath Meds/Allergies Home Medications and Allergies Home Medications Medication Instructions Recorded Confirmed Type albuterol sulfate 2 puff INHALATION QID PRN 11/21/19 11/21/19 History doxycycline hyclate 1 tab PO BID 11/21/19 11/21/19 History hydrocodone-acetaminophen See Rx Instructions .ROUTE 11/21/19 11/21/19 History .COMPLEX PRN ondansetron 4 mg PO Q6H PRN 11/21/19 11/21/19 History prednisone 20 mg PO DAILY 11/21/19 11/21/19 History tamsulosin 0.4 mg PO BEDTIME 11/21/19 11/21/19 History temazepam 15 mg PO BEDTIME PRN 11/21/19 11/21/19 History Allergies Allergy/AdvReac Type Severity Reaction Status Date / Time No Known Allergies Allergy Verified 11/20/19 17:42 Current Medications Current Medications Generic Name Dose Route Start Last Admin Trade Name Freq PRN Reason Stop Dose Admin Acetaminophen 650 mg 11/21/19 00:13 11/21/19 00:45 Tylenol VT 650 mg Q6H PRN Administration FEVER Aspirin 325 mg 11/21/19 09:00 11/21/19 08:57 Aspirin Ec PO 325 mg DAILY GUDELIA Administration Enoxaparin Sodium 40 mg 11/21/19 00:30 11/21/19 00:43 Lovenox SUBCUT Not Given Q24H GUDELIA Sodium Chloride 1,000 mls @ 100 mls/hr 11/20/19 22:15 11/21/19 10:59 Sodium Chloride 0.9% IV 100 mls/hr .Q10H GUDELIA Administration Piperacillin Sod/Tazobactam 50 mls @ 12.5 mls/hr 11/21/19 05:00 11/21/19 09:12 Sod 3.375 gm/ Sodium Chloride IV Infused Q8H GUDELIA Infusion Protocol Levofloxacin/Dextrose 750 mg in 150 mls @ 150 mls/hr 11/21/19 00:15 11/21/19 01:45 Levaquin-D5w IV Infused Q24H GUDELIA Infusion Protocol Acetaminophen 1,000 mg in 100 mls @ 400 mls/hr 11/21/19 07:54 11/21/19 09:11 Ofirmev IV Infused Q8H PRN Infusion FEVER >101 Oseltamivir Phosphate 75 mg 11/21/19 09:00 11/21/19 08:56 Tamiflu PO 75 mg BID GUDELIA Administration PFSH Acute PFSH: Medical History Achilles rupture Diabetes Hypertension Neuropathy Patella fracture Family History Other CHF (congestive heart failure) Heart disease Social History Smoking and tobacco status: never smoked Vitals/I&O/Wt Last Vital Signs Temp 100.0 F H 11/21/19 10:00 Pulse 106 H 11/21/19 11:02 Resp 13 11/21/19 10:00 BP 115/66 11/21/19 10:00 Pulse Ox 96 11/21/19 11:02 11/20/19 11/21/19 11/21/19 22:59 06:59 14:59 Intake Total 1200 / 1200 1150 / 1150 Output Total 800 / 800 Balance 400 / 400 1150 / 1150 Weight last 48 hrs Weight 210 lb Physical Exam Narrative: EXAM NARRATIVE: GENERAL: Averagely built and averagely nourished, currently on BiPAP HEENT: Pupils equal round reactive to light. No pallor or icterus. NECK: No JVD, No carotid bruit. CARDIOVASCULAR SYSTEM: S1-S2 regular. No murmur rubs or gallops. RESPIRATORY SYSTEM: Chest clear to auscultation anteriorly, No wheezing, intermittent rales on ABDOMEN: Soft, nontender and nondistended. Normal bowel sounds present. EXTREMITIES: No cyanosis or clubbing. trace-1+ left>right pedal edema. CLAIMS CLERK: Patient is alert oriented ?3. No focal neurological deficits. SKIN: Normal turgor and temperature. PSYCH: Normal insight and judgment. Urinary Catheter Management^: Moore: Cath Placed During This Visit: yes Urethral Indwelling: No Reason for Continuing Indwelling Catheter: Accurate Measurement of Urinary Output in Critically Ill Patients Urinary Catheter Date of Insertion: 11/20/19 Urinary Catheter Time of Insertion: 20:56 Data Labs: Other Labs: Laboratory Tests 11/20/19 11/20/19 11/20/19 17:40 17:40 17:40 D-Dimer 1.37 H ABG pH ABG pCO2 ABG pO2 ABG HCO3 O2 Delivery Device FiO2 Calculated Osmolal ity Calcium Total Bilirubin 0.6 AST 19 ALT 11 Alkaline Phosphata se 102 Troponin I 6 Hour Troponin I Hi Sens Del Troponin T Baselin e 93 H Troponin T 120 Min [place] Troponin T NT-Pro-B Natriuret Pep 264 H Influenza Type A A g POC Influenza B Ag 11/20/19 11/20/19 11/20/19 18:25 19:58 23:58 D-Dimer ABG pH ABG pCO2 ABG pO2 ABG HCO3 O2 Delivery Device FiO2 Calculated Osmolal ity Calcium Total Bilirubin AST ALT Alkaline Phosphata se Troponin I 6 Hour 151.0 H Troponin I Hi Sens Del 58.0 H* Troponin T Baselin e Troponin T 120 Min [place] 136.6 H [place] Troponin T 43.6 H* NT-Pro-B Natriuret Pep Influenza Type A A g Positive H POC Influenza B Ag Negative 11/21/19 11/21/19 11/21/19 01:30 03:45 05:38 D-Dimer ABG pH 7.27 L ABG pCO2 72.6 H* ABG pO2 84.1 ABG HCO3 33.0 H O2 Delivery Device Bipap FiO2 50.0 Calculated Osmolal ity 271 L Calcium 9.4 Total Bilirubin AST ALT Alkaline Phosphata se Troponin I 6 Hour Troponin I Hi Sens Del Troponin T Baselin e Troponin T 120 Min [place] Troponin T NT-Pro-B Natriuret Pep Influenza Type A A g POC Influenza B Ag Micro: Micro: Microbiology 11/20/19 18:10 Blood Culture - Pr eliminary Blood SPECIMEN [place] 11/20/19 17:52 Blood Culture - Pr eliminary Blood SPECIMEN [facility] Imaging^: CTA Chest: Radiologist's impression: IMPRESSION: 1. No evidence pulmonary embolus. 2. Small ground-glass opacities in the right upper and lower lobes could represent pneumonia or aspiration. 3. Prominent mediastinal lymph nodes are most likely reactive. Other Imaging: I personally reviewed and interpreted this imaging study as follows: My impression: Lexiscan MPI (10/29/2019) PERFUSION FINDINGS Large area of fixed perfusion defect noted from basal to distal inferior and basal to mid inferolateral wall suggestive of old myocardial infarction versus scarring. Please note that patient was not able to perform the prone images therefore cannot rule out artifact. EKG segment will be documented separately. FUNCTIONAL RESULTS (calculated via Gated SPECT) Stress Image LV EF (%): 57 Stress EDV (mL):88 TID: 1.06 Stress ESV (mL):38 Rest Image LV EF (%): 57 FUNCTIONAL FINDINGS: Basal to mid inferior wall hypokinesis IMPRESSIONS Large area of fixed perfusion defect noted from basal to distal inferior and basal to mid inferolateral wall suggestive of old myocardial infarction versus scarring. Please note that patient was not able to perform the prone images therefore cannot rule out artifact. EKG segment will be documented separately Doppler Ulrasound of LE: Radiologist's impression: (10/11/19) Indication: WEAKNESS IN LEGS. PAIN. RIGHT LEFT Brachial 139.00 mmHg Brachial 132.00 mmHg Pressure (mmHg) Waveform Pressure (mmHg) Waveform Below Knee 118.00 IT OPERATIONS ANALYST 96.00 DPA 108.00 Ankle/Brachial Index 0.78 49.00 Pre-Exercise Toe Pressure 53.00 0.35 Pre-Exercise Toe/Brachial Index 0.38 FINDINGS RT DPA: 93 RT IT OPERATIONS ANALYST: NC Normal resting NIRALI on the right side Diminished resting NIRALI on the left side Normal resting TBI's bilaterally CONCLUSIONS Abnormal resting NIRALI and TBI on the left side, suggestive of moderate peripheral arterial disease Abnormal resting TBI with supernormal resting NIRALI on the right side, suggestive of moderate peripheral arterial disease, possibly involving the distal vessels A&P Assessment and plan (1) Respiratory failure: Currently on BiPAP support. Status: Acute Qualifiers: Chronicity: acute Respiratory failure complication: hypoxia and hypercapnia Qualified Code(s): J96.01 - Acute respiratory failure with hypoxia; J96.02 - Acute respiratory failure with hypercapnia Code(s): J96.90 - Respiratory failure, unspecified, unspecified whether with hypoxia or hypercapnia (2) Pneumonia: On antibiotics as per primary team. Status: Acute Code(s): J18.9 - Pneumonia, unspecified organism (3) Influenza due to influenza virus, type A, human: On Tamiflu Status: Acute Code(s): J10.1 - Influenza due to other identified influenza virus with other respiratory manifestations (4) Non-ST elevation AL (NSTEMI): This is likely a non-ST elevation acute coronary syndrome type II in setting of hypoxia and respiratory distress. -Recent stress test with fixed perfusion defect of entire inferior and basal to mid inferolateral kessler suggestive for myocardial infarction versus scarring. In absence of prone imaging artifact could not be ruled out. No evidence of ischemia on EKG. -No further testing warranted at this point. Once respiratory status improves, will get echocardiogram. -Once patient recovers from pneumonia and influenza may consider coronary angiogram as an outpatient, if patient continues to be symptomatic. Status: Acute Code(s): I21.4 - Non-ST elevation (NSTEMI) myocardial infarction (5) Diabetes: Status: Acute Qualifiers: Diabetes mellitus type: type 2 Code(s): E11.9 - Type 2 diabetes mellitus without complications Additional A&P Information Leucocytosis Anemia Hyponatremia Polyarthritis Neuropathy History of DVT in August 2019 History of vitamin B12 deficiency Thank you for allowing me to participate in patient's care. Please feel free to call with questions or concerns. 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
--- NOTE | 2019-11-21 19:43 | PC.NURSE ---
bedside report rcvd pt resting on bipap 18/10 pt answering questions appropriately . family at [facility]. update provided. mireya alaniz.
[2019-11-21] MEDS: morphine 4 mg/mL SDV 1 mL 2 MG IVP (20:37)
--- NOTE | 2019-11-21 21:08 | PM.CONSULT ---
Providers/Reason For Consult Consulting Physican/Specialty*: Pulmonary critical care medicine Reason for Consult*: Acute on chronic hypercapnic respiratory failure and new onset hypoxia Attending Physician: Zeb Brownlee MD Primary Care Provider: Zeb Brownlee MD History of Present Illness History of Present Illness Shaq Churchill is a 64 year old male with a complicated past medical history. In this hospital admission, the patient is being admitted with influenza and questionable pneumonia. However, the patient has developed profound acute on chronic hypercapnic respiratory failure requiring persistent noninvasive positive pressure ventilation. On the CT angiogram of his chest, there is minimal groundglass opacity in the right upper lobe which is inconsistent with bacterial pneumonia however this could represent some degree of infiltrate secondary to viral pneumonia or pneumonitis secondary to an aspiration event. The patient is covered with broad-spectrum antibiotic. The complicated part of his history includes his past medical history. The patient had been functioning completely about a year and a half ago. The patient then started developing progressive neuropathy. According to medical record, initially the neurologist thought that the neuropathy was secondary to diabetes however this was ruled out as his diabetes was very well controlled. The patient continued to have progressive bilateral lower extremity weakness and started having severe exertional shortness of breath with development of hypoxia with minimal exertion. The patient had financial difficulties and did not have regular follow-up with his neurologist. So far the patient has seen neurologist in [place] and a neurologist in [place]. Unfortunately I do not have any records from these visits but from what the patient tells me it appears that the patient had EMGs performed and his sister who works in the ICU also stated that he had muscle biopsies done. The patient has received treatment with doxycycline and corticosteroid without any significant benefit. I evaluated the patient in ICU today. The patient was on noninvasive positive pressure ventilation however he was able to have a conversation with me I had put the patient on BiPAP with a reduced inspiratory positive airway pressure however the patient became visibly tachypneic and tired. I had performed a bedside ultrasound of his diaphragm and the patient has minimal diaphragmatic movement. I have reviewed his CT scans from the past there is no evidence of any interstitial lung disease. The etiology for his respiratory failure during this admission is increased mechanical demand of the respiratory muscles in the setting of influenza infection with profound diaphragmatic and weakness of inspiratory muscles. Unfortunately, the cause of this weakness is unclear at this time. The patient has undergone extensive rheumatologic work-up in the past however I do not have any of these records. Interestingly, the patient has developed polyarthritis. Review of Systems Narrative: The patient complains of shortness of breath however I am unable to obtain a complete review of system because of his clinical condition. Meds/Allergies Home Medications and Allergies Home Medications Medication Instructions Recorded Confirmed Type albuterol sulfate 2 puff INHALATION QID PRN 11/21/19 11/21/19 History doxycycline hyclate 1 tab PO BID 11/21/19 11/21/19 History hydrocodone-acetaminophen See Rx Instructions .ROUTE 11/21/19 11/21/19 History .COMPLEX PRN ondansetron 4 mg PO Q6H PRN 11/21/19 11/21/19 History prednisone 20 mg PO DAILY 11/21/19 11/21/19 History tamsulosin 0.4 mg PO BEDTIME 11/21/19 11/21/19 History temazepam 15 mg PO BEDTIME PRN 11/21/19 11/21/19 History Allergies Allergy/AdvReac Type Severity Reaction Status Date / Time No Known Allergies Allergy Verified 11/20/19 17:42 Current Medications Current Medications Generic Name Dose Route Start Last Admin Trade Name Freq PRN Reason Stop Dose Admin Acetaminophen 650 mg 11/21/19 00:13 11/21/19 00:45 Tylenol [place] 650 mg Q6H PRN Administration FEVER Aspirin 325 mg 11/21/19 09:00 11/21/19 08:57 Aspirin Ec PO 325 mg DAILY GUDELIA Administration Enoxaparin Sodium 40 mg 11/21/19 00:30 11/21/19 00:43 Lovenox SUBCUT Not Given Q24H GUDELIA Piperacillin Sod/Tazobactam 50 mls @ 12.5 mls/hr 11/21/19 05:00 11/21/19 20:43 Sod 3.375 gm/ Sodium Chloride IV 12.5 mls/hr Q8H GUDELIA Administration Protocol Levofloxacin/Dextrose 750 mg in 150 mls @ 150 mls/hr 11/21/19 00:15 11/21/19 01:45 Levaquin-D5w IV Infused Q24H GUDELIA Infusion Protocol Acetaminophen 1,000 mg in 100 mls @ 400 mls/hr 11/21/19 07:54 11/21/19 20:37 Ofirmev IV 400 mls/hr Q8H PRN Administration FEVER >101 Morphine Sulfate 2 mg 11/21/19 00:16 11/21/19 20:37 Morphine IVP 2 mg Q4H PRN Administration SEVERE PAIN Oseltamivir Phosphate 75 mg 11/21/19 09:00 11/21/19 16:11 Tamiflu PO 75 mg BID GUDELIA Administration PFSH Acute PFSH: Medical History Achilles rupture Diabetes Hypertension Neuropathy Patella fracture Family History Other CHF (congestive heart failure) Heart disease Social History Smoking and tobacco status: never smoked Vitals/I&O/Wt Last Vital Signs Temp 98.5 F 11/21/19 18:00 Pulse 119 H 11/21/19 20:13 Resp 24 H 11/21/19 20:37 BP 96/66 11/21/19 18:00 Pulse Ox 96 11/21/19 20:13 11/21/19 11/21/19 11/21/19 06:59 14:59 22:59 Intake Total 1200 / 1200 1150 / 1150 290 / 1440 Output Total 800 / 800 700 / 700 Balance 400 / 400 1150 / 1150 -410 / 740 Weight last 48 hrs Weight 210 lb Physical Exam Narrative: EXAM NARRATIVE: General: Patient is awake alert and oriented, tachypneic and in mild distress, able to have a conversation HEENT: Pupil bilateral symmetric, light and accommodation reflex present, extraocular muscle movement intact, no deformity of the nose Neck: No JVD, no cervical or supraclavicular lymphadenopathy. Respiratory: Auscultation: Reduced breath sound bilaterally, rhonchi more prominent on the right side, no crackles or wheezing Cardiovascular: Regular rate and rhythm, tachycardia, S1-S2 present, no murmur, no right ventricular heave, no peripheral edema. Abdomen: Soft, nontender, nondistended, positive bowel sound. No palpable organomegaly. Musculoskeletal: No obvious joint deformity Skin: No rash Neuro: Mental status is normal, no gross cranial nerve deficit, the patient does not have any focal neurologic deficit Urinary Catheter Management^: Moore: Cath Placed During This Visit: yes Urethral Indwelling: No Reason for Continuing Indwelling Catheter: Accurate Measurement of Urinary Output in Critically Ill Patients Urinary Catheter Date of Insertion: 11/20/19 Urinary Catheter Time of Insertion: 20:56 Data Micro: Micro: Microbiology 11/20/19 18:10 Blood Culture - Pr eliminary Blood NEGATIVE TO SUNDAR E 11/20/19 17:52 Blood Culture - Pr eliminary Blood NEGATIVE TO SUNDAR E Other Data: Other data: I have reviewed the patient's laboratory, microbiologic and radiologic data. As described in the HPI the patient does not have any pulmonary embolism on the CT angiogram there is minimal groundglass opacity in the right upper lobe. This is not consistent with a MRSA or bacterial lobar pneumonia. A&P Assessment and plan (1) Acute and chronic respiratory failure with hypercapnia: The etiology of acute on chronic hypercapnic respiratory failure new influenza infection. The question is why does the patient have hypercapnic respiratory failure at baseline. The common etiology for hypercapnic respiratory failure include #1 central hypoventilation, this could be mediated by a SUPPLY CHAIN SPECIALIST dysfunction including structural lesion or secondary to narcotics #2 chronic obstructive pulmonary disease like emphysema, chronic bronchitis or asthma resulting in severe compromise of the lung function #3 restrictive lung disease either in the form of pulmonary etiology or kyphoscoliosis #4 neuromuscular weakness. Given the patient history of neuropathy the neuromuscular weakness is the most likely etiology for his chronic hypercapnic respiratory failure. The bedside ultrasound of the diaphragm also confirmed profound diaphragmatic weakness. If the patient does well with noninvasive mechanical ventilatory support, as his influenza gets better he might be able to get liberated from the noninvasive positive pressure ventilation. However the patient does have a weak cough and there is a chance that he will need to get intubated. The etiology for this neuropathy is however unclear. The patient has developed polyarthritis which could suggest a rheumatologic disease. Many rheumatologic diseases can be associated with peripheral neuropathy both motor and sensory. Vasculitic disorder can also present similarly however multiple systems are usually involved. I have reviewed the patient's review as medical record, there is no evidence of eosinophilia which can be seen with eosinophilic pneumatosis with polyangiitis. There is no history of upper respiratory tract disease or cavitary lesion in the lung which will go against granulomatosis with polyangiitis. Microscopic polyangiitis can present with mononeuritis multiplex however generalized neuropathy is uncommon. The patient has undergone extensive rheumatologic work-up in the past and I will obtain them. The patient apparently underwent EMGs and muscle biopsy unfortunately I do not have record of them right now. I am in the process of obtaining them as well. Patients with chronic inflammatory demyelinating polyneuropathy can present with polyneuropathy as well as significant diaphragmatic weakness. There are many etiologies for that and I would assume that the neurologists have completed a thorough work-up for that. However in a lot of cases there is no definitive diagnosis for it. However the treatment for this will be plasmapheresis or IVIG. The other possibility would be an inflammatory myopathy in the form of polymyositis dermatomyositis or inclusion body myositis. However the patient has been treated with steroid in the past without any significant improvement. Polymyositis and dermatomyositis are expected to get better with steroid however inclusion body myositis would not. Before I order any rheumatologic test I will review all the past records first. If the previous EMGs are consistent with a muscle cause of weakness, I would proceed with a muscle biopsy. 1 unusual etiology could be a paraneoplastic syndrome. The patient has undergone multiple chest imaging however I did not see any abdomen imaging. I will consider obtaining an abdominal CT scan to rule out any malignancy. The patient will also require CSF study down the line unless he has already gotten them. The history of the work-up is incomplete at this point. Status: Acute Code(s): J96.22 - Acute and chronic respiratory failure with hypercapnia (2) Influenza due to influenza virus, type A, human: The patient is on Tamiflu and broad-spectrum antibiotic for suspicion of secondary bacterial pneumonia. We will continue with that for the time being. Thank you for the consultation. I will continue to follow the patient. Status: Acute Code(s): J10.1 - Influenza due to other identified influenza virus with other respiratory manifestations Coding Level of Care Code Acute Renewable Energy Broker for [facility] Diagnoses Acute and chronic respiratory failure with hypercapnia J96.22 Influenza due to influenza virus, type A, human J10.1
[2019-11-22] VITALS (29 sets, daily range): BP systolic 103–144; BP diastolic 62–93; PULSE 82–116; RESP 10–23; TEMP 36.9–38.8; O2SAT 88–100
[2019-11-22] MEDS: levofloxacin-dextrose 5 % 750 MG/150 ML PREMIX 150 MG IV (00:27)
[2019-11-22] MEDS: enoxaparin 40 mg/0.4 mL Syringe SUBCUT (00:27)
[2019-11-22 04:48] LABS: Basophils % 0.7 %; Eosinophils % 0.6 %; Hematocrit 37.5 % (42.0-52.0); Lymphocytes # 0.8 10^3/uL (0.8-4.8); Lymphocytes % 15.4 %; Mean Corpuscular HGB Conc 29.3 g/dL (30.0-36.0); Mean Corpuscular Hemoglobin 24.2 pg (28.0-34.0); Mean Corpuscular Volume 82.6 fL (80-94); Mean Platelet Volume 10.3 fL (7.4-10.4); Monocytes # 0.4 10^3/uL (0.2-0.9); Monocytes % 7.9 %; Neutrophils # 4.1 10^3/uL (1.8-7.7); Nucleated Red Blood Cells % 0 %; Platelet Count 249 10^3/cmm (130-400); Red Blood Count 4.54 10^6/uL (4.1-5.3); Red Cell Distribution Width 13.9 % (12.1-15.1); White Blood Count 5.5 10^3/uL (4.0-10.0)
[2019-11-22] MEDS: piperacillin-tazobactam 3.375 GM in sodium chloride 0.9% (plus) 50 ML IV ×3 (05:04→21:31)
[2019-11-22 05:36] LABS: Alanine Aminotransferase 11 U/L (0-41); Albumin Level 2.9 g/dL (3.5-5.2); Alkaline Phosphatase 66 IU/L (40-130); Anion Gap 14.6 (5-19); Aspartate Amino Transferase 27 U/L (0-40); Blood Urea Nitrogen 10 mg/dL (8-23); Calcium 9.6 mg/dL (8.5-10.5); Carbon Dioxide 33 mmol/L (22-29); Chloride 92 mmol/L (98-107); Creatinine Clr Calc Pharmacy 151.3695; Globulin 3.4 g/dL (1.3-4.6); Glomerular Filtration Rate 135.6 mL/min (90-130); Glucose 83 mg/dL (65-115); Potassium 4.6 mmol/L (3.5-5.1); Sodium 135 mmol/L (136-145); Total Bilirubin 0.4 mg/dL (0.15-1.2); Total Protein 6.3 g/dL (6.6-8.7)
--- NOTE | 2019-11-22 06:38 | PC.NURSE ---
pt oob to side of bed. stood for apprx 2 min while linens changed. vss remained stable . pt asssited back to bed for comfort. bath care provided. mireya alaniz.
[2019-11-22] MEDS: oseltamivir phosphate 75 mg Capsule PO ×2 (11:11→17:16)
[2019-11-22] MEDS: ketorolac 30 mg/mL INJ 15 MG IVP (11:11)
[2019-11-22] MEDS: aspirin 325 mg EC Tablet PO (11:11)
[2019-11-22] MEDS: lanolin oint 7 gm 1 APPLIC TOPICAL (11:12)
[2019-11-22] MEDS: morphine 4 mg/mL SDV 1 mL 2 MG IVP (12:46)
--- NOTE | 2019-11-22 13:35 | PM.PN ---
Subjective Subjective: Interval history: Patient seen to be doing a little bit better today. Little less short of breath. Still had some fevers overnight. No chest pain. Vitals/I&O/Wt Last Vital Signs Temp 101.9 F H 11/22/19 05:12 Pulse 100 11/22/19 11:23 Resp 18 11/22/19 12:46 BP 114/73 11/22/19 06:00 Pulse Ox 96 11/22/19 12:46 11/21/19 11/22/19 11/22/19 22:59 06:59 14:59 Intake Total 390 / 2160 470 / 2160 560 / 560 Output Total 700 / 1600 900 / 1600 Balance -310 / 560 -430 / 560 560 / 560 Weight last 48 hrs Weight 210 lb Physical Exam Narrative: EXAM NARRATIVE: General: No acute distress, Alert. Well nourished. Heart: Regular rate and rhythm. No murmurs, rubs or gallops. Normal capillary refill. Lungs: Occasional rhonchi but otherwise much clearer. No significant wheezes.. Abdomen: Positive bowel sounds. Non-tender, non-distended. No hepatosplenomegaly. No gaurding. Extremities: No clubbing, cyanosis, or edema. Negative Patricia's Urinary Catheter Management^: Moore: Cath Placed During This Visit: yes Urethral Indwelling: No Reason for Continuing Indwelling Catheter: Accurate Measurement of Urinary Output in Critically Ill Patients Urinary Catheter Date of Insertion: 11/20/19 Urinary Catheter Time of Insertion: 20:56 Data : 11/22/19 04:06 11/22/19 04:06 Micro: Microbiology 11/20/19 20:35 Urine Culture - Preliminary Urine,Clean Catch Gram Negative Rods 11/20/19 18:10 Blood Culture - Preliminary Blood NEGATIVE TO DATE 11/20/19 17:52 Blood Culture - Preliminary Blood NEGATIVE TO DATE A&P Assessment and plan (1) Pneumonia: -Appreciate pulmonology consult. -Seems to be improving some. Weaning him off of the BiPAP. -Continue with Tamiflu and IV antibiotics. -If continues to do well probable transfer to the floor tomorrow. Status: Acute Code(s): J18.9 - Pneumonia, unspecified organism (2) Influenza due to influenza virus, type A, human: Continue with Tamiflu Status: Acute Code(s): J10.1 - Influenza due to other identified influenza virus with other respiratory manifestations (3) Respiratory failure: Improving as above. Status: Acute Qualifiers: Chronicity: acute Respiratory failure complication: hypoxia and hypercapnia Qualified Code(s): J96.01 - Acute respiratory failure with hypoxia; J96.02 - Acute respiratory failure with hypercapnia Code(s): J96.90 - Respiratory failure, unspecified, unspecified whether with hypoxia or hypercapnia (4) Non-ST elevation NC (NSTEMI): -Continue current care. -Appreciate cardiology's consultation. Status: Acute Code(s): I21.4 - Non-ST elevation (NSTEMI) myocardial infarction (5) Polyarthritis: Status: Acute Code(s): M13.0 - Polyarthritis, unspecified (6) Diabetes: Status: Acute Qualifiers: Diabetes mellitus type: type 2 Code(s): E11.9 - Type 2 diabetes mellitus without complications (7) Neuropathy: Status: Acute Code(s): G62.9 - Polyneuropathy, unspecified Attestations Medical Necessity Statement*: Patient is a 64-year-old gentleman with respiratory failure secondary to pneumonia and influenza. He requires continued inpatient monitoring and treatment. Coding Level of Care Code Acute Welfare Director for [facility] Diagnoses Pneumonia J18.9 Influenza due to influenza virus, type A, human J10.1 Respiratory failure J96.01; J96.02 Chronicity: acute Respiratory failure complication: hypoxia and hypercapnia Non-ST elevation NC (NSTEMI) I21.4 Polyarthritis M13.0 Diabetes E11.9 Diabetes mellitus type: type 2 Neuropathy G62.9
[2019-11-22 14:36] LABS: Blood Gas Sample Site VEIN; Blood Gas Sample Type Venous; Oxygen Device BIPAP
[2019-11-22 14:42] LABS: PCO2 VBG 86.6 mmHg (41-51); pH VBG 7.23 (7.32-7.42)
[2019-11-22 14:43] LABS: HCO3 VBG 36.3 mmol/L (24-28); PO2 VBG 36.9 mmHg (25-40)
--- NOTE | 2019-11-22 15:29 | PC.NURSE ---
SON AT BEDSIDE. PT UP TO BSC WITH MINIMAL ASSIST, KEPT BIPAP ON UNTIL BREAKFAST. ABLE TO EAT WITH MINIMAL DIFFICULTY.
[2019-11-22] MEDS: magnesium hydroxide 30 mL UDC PO (16:08)
--- NOTE | 2019-11-22 17:12 | P.PN_ITS ---
Subjective Subjective: Interval history: Mr. Churchill was seen and examined today. He is doing much better than yesterday. Currently the patient is on high flow nasal cannula with good saturation and looks comfortable. He is mildly tachypneic. I had a conversation with the patient and he was able to provide me a complete history. The patient had undergone significant neurologic work-up at [facility] in [place] and had been told that he might require treatment with IVIG. I was able to find the left sural nerve biopsy as well as right quadriceps muscle biopsy results. 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 The sural nerve biopsy revealed decreased density of myelinated fibers. This was severe. There was generalized decrease. Increased rate of empty nerve strands. There was no significant inflammatory cells that were seen. An etiology for this neuropathy could not be identified from the biopsy. I am still in the process of getting more result from [place]. I do not have the extensive blood work that was performed. The patient had never received any spinal tap before. Medications: Reviewed: Yes Vitals/I&O/Wt Last Vital Signs Temp 98.4 F 11/22/19 10:00 Pulse 88 11/22/19 15:43 Resp 18 11/22/19 15:43 BP 121/74 11/22/19 14:00 Pulse Ox 97 11/22/19 15:43 11/22/19 11/22/19 11/22/19 06:59 14:59 22:59 Intake Total 470 / 2010 920 / 920 Output Total 900 / 1600 Balance -430 / 410 920 / 920 Weight last 48 hrs Weight 210 lb Physical Exam Narrative: EXAM NARRATIVE: General: Patient is awake alert and oriented, mildly tachypneic but in no significant distress HEENT: Pupil bilateral symmetric, light and accommodation reflex present, extraocular muscle movement intact, no deformity of the nose, mild skin erythema over the bridge of the nose from the BiPAP mask Neck: No JVD, no cervical or supraclavicular lymphadenopathy. Respiratory: Auscultation: Bilateral reduced breath sound, occasional rhonchi, no crackles or wheezing. There is visibly reduced expansion in bilateral hemithoraces in the lower part Cardiovascular: Regular rate and rhythm, tachycardia, S1-S2 present, no murmur, no right ventricular heave, bilateral peripheral edema Abdomen: Soft, nontender, nondistended, positive bowel sound. No palpable organomegaly. Musculoskeletal: The patient has loss of muscle in the right lower extremity compared to the left, there is redness and bilateral lower extremity swelling Skin: No rash Neuro: Mental status is normal, no gross cranial nerve deficit, the patient does not have any focal neurologic deficit but there is weakness in bilateral lower extremities Urinary Catheter Management^: Moore: Cath Placed During This Visit: yes Urethral Indwelling: No Reason for Continuing Indwelling Catheter: Accurate Measurement of Urinary Output in Critically Ill Patients Urinary Catheter Date of Insertion: 11/20/19 Urinary Catheter Time of Insertion: 20:56 Data : 11/22/19 04:06 11/22/19 04:06 Micro: Microbiology 11/20/19 20:35 Urine Culture - Preliminary Urine,Clean Catch Gram Negative Rods 11/20/19 18:10 Blood Culture - Preliminary Blood NEGATIVE TO DATE 11/20/19 17:52 Blood Culture - Preliminary Blood NEGATIVE TO DATE Other data: I have reviewed the patient's data. A&P Assessment and plan (1) Acute and chronic respiratory failure with hypercapnia: The patient is doing significantly better today. He is not on noninvasive positive pressure ventilation and doing well on high flow nasal cannula. His chest examination is also better than yesterday. I am expecting the patient to get better and go home in the next couple of days. The patient to need noninvasive positive pressure ventilation at nighttime. I have discussed this with the patient. The patient will be covered with long-term disability at this point and he thinks he will be able to get all the help he needs. The patient is planning to go to [place]. I would perform a lumbar puncture for CSF study tomorrow. 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 The patient self catheterizes himself at home and currently has a Moore catheter. The biopsy findings from the muscle and sural nerve biopsy are mentioned in the history of presenting illness. I would prefer for the patient to start treatment as soon as possible. I am going to give the patient a dose of Lasix. If his lower extremity swelling does not improve I would assume this is secondary to the neuropathy. I think at this point we can successfully and safely reduce antibiotic coverage from tomorrow. I will obtain a CT scan of his abdomen and pelvis to rule out any malignancy and all of the symptoms being explained by a paraneoplastic syndrome. Status: Acute Code(s): J96.22 - Acute and chronic respiratory failure with hypercapnia (2) Influenza due to influenza virus, type A, human: The patient is on Tamiflu and doing well. Status: Acute Code(s): J10.1 - Influenza due to other identified influenza virus with other respiratory manifestations Attestations Medical Necessity Statement*: Will defer to the primary team Coding Level of Care Code Acute Shift Engineer for [facility] Diagnoses Acute and chronic respiratory failure with hypercapnia J96.22 Influenza due to influenza virus, type A, human J10.1 Time Spent (min) 42
[2019-11-22] MEDS: FUROsemide 40 mg Tablet PO (17:16)
--- NOTE | 2019-11-22 17:24 | CTR_ITS ---
PROCEDURE INFORMATION: Exam: CT Abdomen And Pelvis With Contrast Exam date and time: 11/22/2019 9:54 PM Age: 64 years old Clinical indication: Condition or disease; Other: Evaluation for malignancy TECHNIQUE: Imaging protocol: Computed tomography of the abdomen and pelvis with intravenous contrast. Total DLP: 1749.54 mGy-cm Radiation optimization: All CT scans at this facility use at least one of these dose optimization techniques: automated exposure control; mA and/or kV adjustment per patient size (includes targeted exams where dose is matched to clinical indication); or iterative reconstruction. Contrast material: OMNI 300; Contrast volume: 95 ml; Contrast route: 20G; COMPARISON: CR Hips Bilat 3-4v wwo Pelv [id number] 01/22/2016 9:27 AM FINDINGS: Lungs: There is ill-defined consolidation in both lower lobes and to a lesser extent in the right middle lobe. This finding is new since 11/20/2019. Liver: The liver is normal. Gallbladder and bile ducts: The gallbladder is normal. There is no biliary dilation. Pancreas: There is mild fatty atrophy of the pancreas. No focal abnormality or evidence of inflammation. Spleen: The spleen is moderately enlarged. Splenic granulomata are present. Adrenals: The adrenal glands are unremarkable. Kidneys and ureters: The kidneys are unremarkable. No hydronephrosis or stones. No ureteral dilation. Stomach and bowel: There is a non-inflamed diverticulum in the proximal duodenum. The stomach is unremarkable. The small bowel is nondilated. There is no sign of inflammation. There is mild sigmoid colonic diverticulosis without evidence of diverticulitis. Appendix: The appendix is normal. Intraperitoneal space: There is no free air or significant intraperitoneal free fluid. Vasculature: There is mild aortic atherosclerotic disease. Lymph nodes: There is no lymphadenopathy in the retroperitoneum, mesentery, pelvis or inguinal regions. Bladder: The Moore catheter is appropriately positioned with the bulb and tip within the bladder lumen. The bladder wall is markedly diffusely thickened. This finding is accentuated by decompression of the bladder lumen. Reproductive: There is nonspecific mild enlargement of the prostate gland. Bones/joints: There is mild degenerative disease in the lumbar spine. There is severe degenerative disease of both hips. The pelvis and hips are intact. Soft tissues: The abdominal wall is intact. CT/CT abdomen pelvis w con* [id number] IMPRESSION: 1. Bilateral lower lobe consolidation consistent with infection or aspiration. This finding is new since 11/20/2019. 2. Thick-walled urinary bladder decompressed around a Moore catheter bulb. Bladder wall thickening is likely due to muscular hypertrophy. A neoplastic cause of wall thickening cannot be excluded. Radiation Dose CTDIVOL = (mGy): DLP = 1749.54 (mGy-cm)
[2019-11-22 17:30] LABS: Blood Gas Sample Type Venous
[2019-11-22 17:32] LABS: Base Excess VBG 11.2 mmol/L (-3.0-3.0); HCO3 VBG 39.3 mmol/L (24-28); PCO2 VBG 69.8 mmHg (41-51); PO2 VBG 31.2 mmHg (25-40); pH VBG 7.36 (7.32-7.42)
[2019-11-22 17:33] LABS: Oxygen Device HHF
--- NOTE | 2019-11-22 18:09 | PM.PN ---
Subjective Subjective: Interval history: Patient is on high flow nasal cannula. No episodes of chest discomfort no arrhythmia on telemetry. Vitals/I&O/Wt Last Vital Signs Temp 98.4 F 11/22/19 10:00 Pulse 88 11/22/19 15:43 Resp 18 11/22/19 15:43 BP 121/74 11/22/19 14:00 Pulse Ox 97 11/22/19 15:43 11/22/19 11/22/19 11/22/19 06:59 14:59 22:59 Intake Total 470 / 2010 920 / 920 360 / 1280 Output Total 900 / 1600 550 / 550 Balance -430 / 410 920 / 920 -190 / 730 Physical Exam Narrative: EXAM NARRATIVE: GENERAL: Averagely built and averagely nourished HEENT: Pupils equal round reactive to light. No pallor or icterus. NECK: No JVD, No carotid bruit. CARDIOVASCULAR SYSTEM: S1-S2 regular. No murmur rubs or gallops. RESPIRATORY SYSTEM: decreased air entry bilateral bases, No wheezing, intermittent rales and rhonchi + ABDOMEN: Soft, nontender and nondistended. Normal bowel sounds present. EXTREMITIES: No cyanosis or clubbing. 1-2+ left>right pedal edema. 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 No focal neurological deficits. Urinary Catheter Management^: Moore: Cath Placed During This Visit: yes Urethral Indwelling: No Reason for Continuing Indwelling Catheter: Accurate Measurement of Urinary Output in Critically Ill Patients Urinary Catheter Date of Insertion: 11/20/19 Urinary Catheter Time of Insertion: 20:56 Data : 11/22/19 04:06 11/22/19 04:06 Micro: Microbiology 11/20/19 20:35 Urine Culture - Preliminary Urine,Clean Catch Gram Negative Rods 11/20/19 18:10 Blood Culture - Preliminary Blood NEGATIVE TO DATE 11/20/19 17:52 Blood Culture - Preliminary Blood NEGATIVE TO DATE A&P Assessment and plan (1) Respiratory failure: Status: Acute Qualifiers: Chronicity: acute Respiratory failure complication: hypoxia and hypercapnia Qualified Code(s): J96.01 - Acute respiratory failure with hypoxia; J96.02 - Acute respiratory failure with hypercapnia Code(s): J96.90 - Respiratory failure, unspecified, unspecified whether with hypoxia or hypercapnia (2) Pneumonia: On antibiotics as per primary team. Status: Acute Code(s): J18.9 - Pneumonia, unspecified organism (3) Influenza due to influenza virus, type A, human: On Tamiflu Status: Acute Code(s): J10.1 - Influenza due to other identified influenza virus with other respiratory manifestations (4) Non-ST elevation [place] (NSTEMI): This is likely a non-ST elevation acute coronary syndrome type II in setting of hypoxia and respiratory distress. -Recent stress test with fixed perfusion defect of entire inferior and basal to mid inferolateral kessler suggestive for myocardial infarction versus scarring. In absence of prone imaging artifact could not be ruled out. No evidence of ischemia on EKG. -No further testing warranted at this point. Once respiratory status improves, will get echocardiogram. -Once patient recovers from pneumonia and influenza may consider coronary angiogram as an outpatient, if patient continues to be symptomatic. Status: Acute Code(s): I21.4 - Non-ST elevation (NSTEMI) myocardial infarction (5) Diabetes: Status: Acute Qualifiers: Diabetes mellitus type: type 2 Code(s): E11.9 - Type 2 diabetes mellitus without complications Additional A&P Information Leucocytosis Anemia Hyponatremia Polyarthritis Neuropathy History of DVT in August 2019 History of vitamin B12 deficiency Thank you for allowing me to participate in patient's care. Please feel free to call with questions or concerns. Attestations Medical Necessity Statement*: As per primary team. Coding Level of Care Code Acute Writer Producer for [facility] Diagnoses Respiratory failure J96.01; J96.02 Chronicity: acute Respiratory failure complication: hypoxia and hypercapnia Pneumonia J18.9 Influenza due to influenza virus, type A, human J10.1 Non-ST elevation [place] (NSTEMI) I21.4 Diabetes E11.9 Diabetes mellitus type: type 2
--- NOTE | 2019-11-22 18:36 | PC.NURSE ---
DR JAIN IN TO ROUND ON PT. PLANS ON ABDOMINAL CT TODAY & LP TO BE DONE TOMORROW. PT DOES C/O OF ANXIETY & SOME DEPRESSION. DENIES BEING SUICIDAL. WILL START ON LOW DOSE SSRI FOR DEP/ANXIETY. LASIX GIVEN FOR BLE EDEMA. RAO REMAINS INTACT & DRAINING UP TO BSC WITH SBA. BIPAP ON.
[2019-11-22] MEDS: iohexol 300 mg/mL 100 mL Btl 95 ML IV (22:12)
[2019-11-23] VITALS (30 sets, daily range): BP systolic 95–145; BP diastolic 64–77; PULSE 75–114; RESP 10–22; TEMP 36.4–39.2; O2SAT 90–98
[2019-11-23] MEDS: levofloxacin-dextrose 5 % 750 MG/150 ML PREMIX 150 MG IV (00:49)
[2019-11-23] MEDS: acetaminophen 650 mg Supp PR (00:49)
[2019-11-23] MEDS: Fleet Enema 133 mL Enema PR (02:46)
[2019-11-23] MEDS: piperacillin-tazobactam 3.375 GM in sodium chloride 0.9% (plus) 50 ML IV ×3 (05:12→20:48)
--- NOTE | 2019-11-23 06:36 | PC.NURSE ---
SHIFT SUMMARY PT HAS REMAINED ALERT AND ORIENTATED. PT IV REMAINS PATENT. PT HAS BEEN UP ON EDGE OF BED A FEW TIMES THROUGH OUT THE NIGHT. PT HAS HAD ADEQUATE URINE OUTPUT. CATHETER CARE WAS DONE BY PATIENT. PT IS CURRENTLY ON HI FLOW NASAL CANNULA. PT LUNGS REMAIN COARSE AT TIMES, PT IS HAVING PRODUCTIVE COUGH AT TIMES, NOT GETTING MUCH UP FROM COUGH THOUGH. DR MELENDEZ ROUNDED ON PT THIS MORNING.
--- NOTE | 2019-11-23 06:48 | PM.PN ---
Subjective Subjective: Interval history: Patient seen to be improving some. He still had some significant fevers overnight but were easier to control than the night before. He is able to be off of the CPAP more. Still on high flow though. He was pretty faithful with the CPAP overnight while he slept. No chest pain. Still has some significant shortness of breath but he feels like that is improving. CT of the abdomen showed some thickening of the bladder wall. He has been seen by Dr. Mathew and couple of months ago had a scope done which was unremarkable. Medications: Reviewed: Yes Vitals/I&O/Wt Last Vital Signs Temp 99.6 F 11/23/19 05:16 Pulse 98 11/23/19 06:34 Resp 19 H 11/23/19 06:34 BP 145/72 11/23/19 06:34 Pulse Ox 93 11/23/19 06:34 11/22/19 11/22/19 11/23/19 14:59 22:59 06:59 Intake Total 920 / 1380 410 / 1380 50 / 1380 Output Total 550 / 1350 800 / 1350 Balance 920 / 30 -140 / 30 -750 / 30 Physical Exam Narrative: EXAM NARRATIVE: General: No acute distress, Alert. Well nourished. Heart: Regular rate and rhythm. No murmurs, rubs or gallops. Normal capillary refill. Lungs: Some more rhonchi noted today versus yesterday. Throughout all lung cavanaugh. No significant crackles.. No significant wheezes.. Abdomen: Positive bowel sounds. Non-tender, non-distended. No hepatosplenomegaly. No gaurding. Extremities: No clubbing, cyanosis, or edema. Negative Patricia's Urinary Catheter Management^: Moore: Cath Placed During This Visit: yes Urethral Indwelling: No Reason for Continuing Indwelling Catheter: Accurate Measurement of Urinary Output in Critically Ill Patients Urinary Catheter Date of Insertion: 11/20/19 Urinary Catheter Time of Insertion: 20:56 Data : 11/22/19 04:06 11/22/19 04:06 Micro: Microbiology 11/20/19 20:35 Urine Culture - Preliminary Urine,Clean Catch Gram Negative Rods A&P Assessment and plan (1) Pneumonia: -Appreciate pulmonology consult. -Seems to be improving some. However, he does seem to have some worsening consolidation seen on CT scan. Now that he is getting off the BiPAP more we will go ahead and start him on incentive spirometry and flutter valve. -Continue with Tamiflu and IV antibiotics. -If continues to do well probable transfer to the floor tomorrow. Status: Acute Code(s): J18.9 - Pneumonia, unspecified organism (2) Influenza due to influenza virus, type A, human: Continue with Tamiflu Status: Acute Code(s): J10.1 - Influenza due to other identified influenza virus with other respiratory manifestations (3) Respiratory failure: Improving as above. Status: Acute Qualifiers: Chronicity: acute Respiratory failure complication: hypoxia and hypercapnia Qualified Code(s): J96.01 - Acute respiratory failure with hypoxia; J96.02 - Acute respiratory failure with hypercapnia Code(s): J96.90 - Respiratory failure, unspecified, unspecified whether with hypoxia or hypercapnia (4) Non-ST elevation [place] (NSTEMI): -Continue current care. -Appreciate cardiology's consultation. Status: Acute Code(s): I21.4 - Non-ST elevation (NSTEMI) myocardial infarction (5) Polyarthritis: Status: Acute Code(s): M13.0 - Polyarthritis, unspecified (6) Diabetes: Status: Acute Qualifiers: Diabetes mellitus type: type 2 Code(s): E11.9 - Type 2 diabetes mellitus without complications (7) Neuropathy: Status: Acute Code(s): G62.9 - Polyneuropathy, unspecified Attestations Medical Necessity Statement*: Patient is a 64-year-old gentleman with pneumonia and influenza requiring continued inpatient IV treatments and monitoring. Coding Level of Care Code Acute Customer Care Team [facility] Diagnoses Pneumonia J18.9 Influenza due to influenza virus, type A, human J10.1 Respiratory failure J96.01; J96.02 Chronicity: acute Respiratory failure complication: hypoxia and hypercapnia Non-ST elevation [place] (NSTEMI) I21.4 Polyarthritis M13.0 Diabetes E11.9 Diabetes mellitus type: type 2 Neuropathy G62.9
[2019-11-23] MEDS: perflutren protein-a microsphr 0.22 mg/mL SDV 3 mL IV (07:20)
[2019-11-23] MEDS: guaiFENesin 600 mg Tablet 1200 MG PO ×2 (09:25→17:58)
[2019-11-23] MEDS: aspirin 325 mg EC Tablet PO (09:25)
[2019-11-23] MEDS: oseltamivir phosphate 75 mg Capsule PO ×2 (09:26→17:58)
[2019-11-23] MEDS: fluoxetine 10 mg Capsule PO (09:26)
[2019-11-23 11:02] LABS: Blood Gas Sample Site VEIN
--- NOTE | 2019-11-23 11:04 | PC.CHAP ---
Pastoral Care Encounter/Spiritual Assessment Type of Contact [] Declined glove presser visit [] Patient/Family/Request visit [] Outpatient visit [] Follow-up visit [] Physician referral [] Code/Alert [x] Routine visit [] Staff referral [] Actively dying [] Patient sleeping [] Family support [] [] Out of room [] Palliative care [] [] Receiving care in room [] Pre-surgical visit [] Trauma [] Long length of stay [x] ICU visit [] Other: Relational/Emotional Strength [] Patient feels connected with others/family/visitors/staff [] Distress [] Loneliness/isolation [] Abandonment Spirituality of Patient [] Person of Tammie [] Attends Pentecostalism of their Tammie [x] Believes in Prayer [] Reads Bible or Advent materials [] There are Spiritual issues to be addressed Feather Separator Interventions [x] Prayer [] Active listening [] Non-anxious presence [] Spiritual/emotional support [] Crisis/trauma care [] Spiritual counseling [] Bereavement support [] Provided bereavement packet [] Provided Bible/devotional materials [] Provided toy/stuffed animal, coloring book to patient or family member [] Provided Communion [] Anointing/[place] [] Salvation [x] Completed spiritual assessment [] Other: Impact on Illness or Injury [] Angry [] Fearful [] Anxious [] Often cries [] Exhaustion [] Unable to work [] Unable to attend shinto [] Unable to walk/stand [] Unable to read [] Unable to drive [] Unable to eat/drink [] Unable to sleep [] Unable to be with family [] Patient intubated [] Other: Summary Patient still undergoing tests. Renée had met family earlier this week, strong family ties. Patient on respirator, but looking strong than our last visit. Time spent with patient 15 min
--- NOTE | 2019-11-23 13:12 | P.PN_ITS ---
Subjective Subjective: Interval history: Patient is on high flow nasal cannula. No episodes of chest discomfort, no arrhythmia on telemetry. CT scan abdomen with thickening of bladder wall. He underwent echocardiogram. Medications: Reviewed: Yes Vitals/I&O/Wt Last Vital Signs Temp 98.6 F 11/23/19 12:10 Pulse 76 11/23/19 12:10 Resp 16 11/23/19 12:10 BP 111/75 11/23/19 12:10 Pulse Ox 93 11/23/19 12:10 11/22/19 11/23/19 11/23/19 22:59 06:59 14:59 Intake Total 410 / 1330 50 / 1380 50 / 50 Output Total 550 / 550 800 / 1350 Balance -140 / 780 -750 / 30 50 / 50 Physical Exam Narrative: EXAM NARRATIVE: GENERAL: Averagely built and averagely nourished HEENT: Pupils equal round reactive to light. No pallor or icterus. NECK: No JVD, No carotid bruit. CARDIOVASCULAR SYSTEM: S1-S2 regular. No murmur rubs or gallops. RESPIRATORY SYSTEM: decreased air entry bilateral bases, bilateral rhonchi + ABDOMEN: Soft, nontender and nondistended. Normal bowel sounds present. EXTREMITIES: No cyanosis or clubbing. 1+ left>right pedal edema. ORTHOTICS PROSTHETICS TECHNICIAN: Patient is alert oriented ?3. No focal neurological deficits. Urinary Catheter Management^: Moore: Cath Placed During This Visit: yes Urethral Indwelling: No Reason for Continuing Indwelling Catheter: Acute Urinary Retention or Obstruction Urinary Catheter Date of Insertion: 11/20/19 Urinary Catheter Time of Insertion: 20:56 Data : 11/22/19 04:06 11/22/19 04:06 Micro: Microbiology 11/20/19 20:35 Urine Culture - Final Urine,Clean Catch Enterobacter cloacae A&P Assessment and plan (1) Respiratory failure: Status: Acute Qualifiers: Chronicity: acute Respiratory failure complication: hypoxia and hypercapnia Qualified Code(s): J96.01 - Acute respiratory failure with hypoxia; J96.02 - Acute respiratory failure with hypercapnia Code(s): J96.90 - Respiratory failure, unspecified, unspecified whether with hypoxia or hypercapnia (2) Pneumonia: On antibiotics as per primary team. Status: Acute Code(s): J18.9 - Pneumonia, unspecified organism (3) Influenza due to influenza virus, type A, human: On Tamiflu Status: Acute Code(s): J10.1 - Influenza due to other identified influenza virus with other respiratory manifestations (4) Non-ST elevation [place] (NSTEMI): This is likely a non-ST elevation acute coronary syndrome type II in setting of hypoxia and respiratory distress. -Recent stress test with fixed perfusion defect of entire inferior and basal to mid inferolateral kessler suggestive for myocardial infarction versus scarring. In absence of prone imaging artifact could not be ruled out. No evidence of ischemia on EKG. -Very technically difficult study. Probably normal left ventricular systolic function on echocardiogram. -Once patient recovers from pneumonia and influenza may consider coronary angiogram as an outpatient, if patient continues to be symptomatic. Status: Acute Code(s): I21.4 - Non-ST elevation (NSTEMI) myocardial infarction (5) Diabetes: Status: Acute Qualifiers: Diabetes mellitus type: type 2 Code(s): E11.9 - Type 2 diabetes mellitus without complications Additional A&P Information Leucocytosis Anemia Hyponatremia Polyarthritis Neuropathy History of DVT in August 2019 History of vitamin B12 deficiency Thank you for allowing me to participate in patient's care. Please feel free to call with questions or concerns. I will sign off. Attestations Medical Necessity Statement*: As per primary team Coding Level of Care Code Acute [place] Filler for [facility] Ta Diagnoses Respiratory failure J96.01; J96.02 Chronicity: acute Respiratory failure complication: hypoxia and hypercapnia Pneumonia J18.9 Influenza due to influenza virus, type A, human J10.1 Non-ST elevation [place] (NSTEMI) I21.4 Diabetes E11.9 Diabetes mellitus type: type 2
[2019-11-23] MEDS: morphine 4 mg/mL SDV 1 mL 2 MG IVP ×2 (15:27→20:49)
[2019-11-23] MEDS: midazolam 1 mg/mL INJ 2 mL 2 MG IVP (15:36)
[2019-11-23] MEDS: lidocaine 1% INJ 20 mL INJECTION (16:04)
--- NOTE | 2019-11-23 16:06 | PM.ACPR ---
Procedure/Consent Time out: Time Out Performed: Yes Consent: Consent for Procedure: Consent obtained from patient Procedure Narrative: Name of the procedure: Lumbar puncture Indication: Suspected meningitis Medications: 1% lidocaine 10 mL Intravenous medications: Morphine 2 mg, Versed 2 mg. Description: The patient was placed in sitting position and his position was optimized. Using the iliac crests as a landmark, space between L3 and L4 vertebrae were identified. The site was marked. The site was cleaned using sterile technique. Sterile technique was followed throughout the procedure. The skin, subcutaneous tissue and deeper tissue were anesthetized with 1% lidocaine. A lumbar puncture needle was advanced in between the spinous processes of L3 and L4 vertebrae. The needle was advanced until a pop and loss of resistance was felt. CSF was noted to be draining through the spinal needle. The opening pressure was 34 cm of water. The CSF appeared clear. The procedure was nonbloody. A total of 14 mL of CSF was collected. Postdrainage the closing pressure was 18 cm of water. The CSF was sent for cell count and differential, CSF protein, glucose, LDH, Gram stain and culture AFB stain and culture, VDRL, West Nile viral serology, HSV serologies. I have discussed with the lab and asked him to hold his specimen for any future tests. Complications: No immediate complication was noted. The plan is to hold off on subcu heparin for 24 hours post procedure. Acute Procedures Epistaxis Control: Time out performed: Yes
--- NOTE | 2019-11-23 16:09 | PC.NURSE ---
Assisted Dr. Saldivar with LP. Consent obtained and on chart. Time out performed. Patient tolerated procedure well. Open pressure 34. Closed pressure 18. Drained 14. Patient education performed and patient now resting in bed laying flat. Samples sent to lab.
[2019-11-23 17:08] LABS: CSF Mononuclear # 0.001 10^3/uL (50-90); Mononuclear WBC CSF % 100 % (50-90); Polynuclear WBC CSF % 0 % (0-10); Red Blood Cell CSF 0 10^3/uL (0-0); White Blood Cell CSF 1 /uL (0-5)
[2019-11-23 18:02] LABS: Total Protein CSF 0 mg/dL (15-45)
[2019-11-23 18:03] LABS: Glucose CSF 75 mg/dL (40-70)
--- NOTE | 2019-11-23 18:14 | USCV_ITS ---
Shaq Churchill Age: 64 Gender: M : 1955 Exam Date: 11/23/2019 06:38 Ordering Phys: Rosa Peters MD ([email or web address]) Technologist: Urban Tello [place] [facility] [place]: Chest Pain. Elevated Troponin. BP: / HR: Rhythm: Sinus Technical Quality: Very technically difficult study MEASUREMENTS (Male / Female) Normal Values FINDINGS Left Ventricle Right Ventricle Right Atrium Left Atrium Mitral Valve Aortic Valve Tricuspid Valve Pulmonic Valve Pericardium Aorta CONCLUSIONS This is a technically very difficult study in spite of using ultrasound enhancing agent (Optison). Probably normal left ventricle size and systolic function. This study is inadequate for estimation of evaluation of valves. Rosa Peters MD (Electronically Signed) Final Date: 23 November 2019 11:07 S
[2019-11-23 19:10] LABS: Appearance CSF CLEAR (CLEAR); Color CSF COLORLESS (COLORLESS); Pathology Referral Yes
[2019-11-23] MEDS: ketorolac 30 mg/mL INJ 15 MG IVP (23:18)
[2019-11-24] VITALS (37 sets, daily range): BP systolic 104–153; BP diastolic 70–98; PULSE 65–96; RESP 1–26; TEMP 36.2–37; O2SAT 93–99
[2019-11-24] MEDS: levofloxacin-dextrose 5 % 750 MG/150 ML PREMIX 150 MG IV (00:29)
[2019-11-24 04:19] LABS: Basophils % 0.4 %; Eosinophils # 0.2 10^3/uL (0.0-0.8); Eosinophils % 3.3 %; Hematocrit 32.2 % (42.0-52.0); Hemoglobin 9.9 g/dL (11.7-16.6); Lymphocytes # 1.5 10^3/uL (0.8-4.8); Lymphocytes % 32.9 %; Mean Corpuscular HGB Conc 30.7 g/dL (30.0-36.0); Mean Corpuscular Hemoglobin 25.3 pg (28.0-34.0); Mean Corpuscular Volume 82.1 fL (80-94); Mean Platelet Volume 10.1 fL (7.4-10.4); Monocytes # 0.5 10^3/uL (0.2-0.9); Neutrophils # 2.4 10^3/uL (1.8-7.7); Neutrophils % 52.7 %; Nucleated Red Blood Cells % 0 %; Platelet Count 220 10^3/cmm (130-400); Red Blood Count 3.92 10^6/uL (4.1-5.3); White Blood Count 4.5 10^3/uL (4.0-10.0)
[2019-11-24 04:39] LABS: Alanine Aminotransferase 10 U/L (0-41); Albumin Level 2.6 g/dL (3.5-5.2); Alkaline Phosphatase 51 IU/L (40-130); Anion Gap 13.4 (5-19); Aspartate Amino Transferase 14 U/L (0-40); Blood Urea Nitrogen 10 mg/dL (8-23); Carbon Dioxide 32 mmol/L (22-29); Chloride 94 mmol/L (98-107); Creatinine Clr Calc Pharmacy 151.3695; Globulin 2.9 g/dL (1.3-4.6); Glomerular Filtration Rate 135.6 mL/min (90-130); Glucose 132 mg/dL (65-115); Potassium 3.4 mmol/L (3.5-5.1); Sodium 136 mmol/L (136-145); Total Bilirubin 0.3 mg/dL (0.15-1.2); Total Protein 5.5 g/dL (6.6-8.7)
[2019-11-24 04:54] LABS: C Reactive Protein 45.6 mg/L (0.0-4.9)
[2019-11-24] MEDS: piperacillin-tazobactam 3.375 GM in sodium chloride 0.9% (plus) 50 ML IV ×3 (04:57→21:08)
[2019-11-24] MEDS: acetaminophen 325 mg Tablet 650 MG PO (05:55)
[2019-11-24] MEDS: guaiFENesin 600 mg Tablet 1200 MG PO ×2 (08:02→17:12)
[2019-11-24] MEDS: aspirin 325 mg EC Tablet PO (08:02)
[2019-11-24] MEDS: fluoxetine 10 mg Capsule PO (08:02)
[2019-11-24] MEDS: oseltamivir phosphate 75 mg Capsule PO ×2 (08:02→17:12)
[2019-11-24] MEDS: ketorolac 30 mg/mL INJ 15 MG IVP (08:12)
[2019-11-24] MEDS: morphine 4 mg/mL SDV 1 mL 2 MG IVP ×2 (09:02→22:37)
--- NOTE | 2019-11-24 10:30 | PM.PN ---
Subjective Subjective: Interval history: No acute events overnight. Patient states he will depressed today morning. He thinks he is feeling a lot better today but is worried about long-term plans. On examination patient is on high flow but as per RN better than yesterday. Patient himself denies of having any shortness of breath, cough, expectoration, headache, nausea, vomiting Medications: Reviewed: Yes Vitals/I&O/Wt Last Vital Signs Temp 97.8 F 11/24/19 10:27 Pulse 74 11/24/19 10:00 Resp 14 11/24/19 10:00 BP 138/87 11/24/19 10:00 Pulse Ox 95 11/24/19 10:00 11/23/19 11/24/19 11/24/19 22:59 06:59 14:59 Intake Total 170 / 220 1040 / 1260 Output Total 450 / 450 400 / 850 Balance -280 / -230 640 / 410 Physical Exam Narrative: EXAM NARRATIVE: GENERAL: Averagely built and averagely nourished HEENT: Pupils equal round reactive to light. No pallor or icterus. NECK: No JVD, No carotid bruit. CARDIOVASCULAR SYSTEM: S1-S2 regular. No murmur rubs or gallops. RESPIRATORY SYSTEM: decreased air entry bilateral bases, bilateral rhonchi + ABDOMEN: Soft, nontender and nondistended. Normal bowel sounds present. EXTREMITIES: No cyanosis or clubbing. 1+ left>right pedal edema. INSTRUCTOR DRAMATIC ARTS: Patient is alert oriented ?3. No focal neurological deficits. Urinary Catheter Management^: Moore: Cath Placed During This Visit: yes Urethral Indwelling: No Reason for Continuing Indwelling Catheter: Accurate Measurement of Urinary Output in Critically Ill Patients Urinary Catheter Date of Insertion: 11/20/19 Urinary Catheter Time of Insertion: 20:56 Data : 11/24/19 03:51 11/24/19 03:51 Micro: Microbiology 11/23/19 15:48 Gram Stain - Final Cerebrospinal Fluid 11/20/19 20:35 Urine Culture - Final Urine,Clean Catch Enterobacter cloacae A&P Assessment and plan (1) Respiratory failure: -Appreciate pulmonology consult. -Seems to be improving some. -C/w incentive spirometry and flutter valve. -Continue with Tamiflu and IV antibiotics. -Given the slow progression/improvement we will start him on a low-dose steroid of prednisone 40 mg daily for at least 5 days. -If continues to do well probable transfer to the floor tomorrow. Status: Acute Qualifiers: Chronicity: acute Respiratory failure complication: hypoxia and hypercapnia Qualified Code(s): J96.01 - Acute respiratory failure with hypoxia; J96.02 - Acute respiratory failure with hypercapnia Code(s): J96.90 - Respiratory failure, unspecified, unspecified whether with hypoxia or hypercapnia (2) Pneumonia: Status: Acute Code(s): J18.9 - Pneumonia, unspecified organism (3) Influenza due to influenza virus, type A, human: On Tamiflu Status: Acute Code(s): J10.1 - Influenza due to other identified influenza virus with other respiratory manifestations (4) Non-ST elevation [place] (NSTEMI): This is likely a non-ST elevation acute coronary syndrome type II in setting of hypoxia and respiratory distress. -Recent stress test with fixed perfusion defect of entire inferior and basal to mid inferolateral kessler suggestive for myocardial infarction versus scarring. In absence of prone imaging artifact could not be ruled out. No evidence of ischemia on EKG. C/w ASA. Will get lipid in AM and start on statins accordingly. ECHO results appreciated. Cardiology results appreciated. Once patient recovers from pneumonia and influenza may consider coronary angiogram as an outpatient, if patient continues to be symptomatic. Status: Acute Code(s): I21.4 - Non-ST elevation (NSTEMI) myocardial infarction (5) Diabetes: Status: Acute Qualifiers: Diabetes mellitus type: type 2 Code(s): E11.9 - Type 2 diabetes mellitus without complications Additional A&P Information Chronic respiratory failure: On reviewing the chart and history most likely due to neuromuscular disorder. CSF studies sent yesterday. ALS is also 1 of the considerations. Will discuss with Dr. Saldivar to see if studies to be added to CSF already sent yesterday. Patient would most likely need IVIG treatment once influenza acute event is surpassed. Full code. Lovenox for DVT prophylaxis. Protonix for PUD prophylaxis. Attestations Medical Necessity Statement*: Acute on chronic respiratory failure Coding Level of Care Code Acute Parts Back Counter Man for [facility] Diagnoses Respiratory failure J96.01; J96.02 Chronicity: acute Respiratory failure complication: hypoxia and hypercapnia Pneumonia J18.9 Influenza due to influenza virus, type A, human J10.1 Non-ST elevation [place] (NSTEMI) I21.4 Diabetes E11.9 Diabetes mellitus type: type 2
[2019-11-24] MEDS: predniSONE 20 mg Tablet 40 MG PO (10:35)
[2019-11-24] MEDS: magnesium hydroxide 30 mL UDC PO (11:49)
[2019-11-24] MEDS: ipratropium-albuterol 3 mL Neb INHALATION ×2 (14:23→21:13)
--- NOTE | 2019-11-24 15:51 | PC.NURSE ---
BM patient has a small, soft, brown BM after each enema.
[2019-11-24] MEDS: budesonide 0.5 mg/2 mL Neb INHALATION (21:13)
--- NOTE | 2019-11-24 21:35 | PC.NURSE ---
Patient reports headache but states that he does not want anything for pain at present time. Ice pack placed to back of head and neck and room darkened for comfort.
[2019-11-25] VITALS (30 sets, daily range): BP systolic 113–186; BP diastolic 71–126; PULSE 71–99; RESP 5–24; TEMP 36.6–36.8; O2SAT 91–99
[2019-11-25] MEDS: levofloxacin-dextrose 5 % 750 MG/150 ML PREMIX 150 MG IV (01:40)
[2019-11-25] MEDS: enoxaparin 40 mg/0.4 mL Syringe SUBCUT (01:40)
[2019-11-25] MEDS: piperacillin-tazobactam 3.375 GM in sodium chloride 0.9% (plus) 50 ML IV ×3 (04:41→21:20)
[2019-11-25] MEDS: ipratropium-albuterol 3 mL Neb INHALATION (04:41)
[2019-11-25 05:12] LABS: Cholesterol 168 mg/dL (0-200); HDL Cholesterol 30 mg/dL (60-100); LDL Cholesterol Calculated 118 mg/dL (50-129); Triglycerides 100 mg/dL (0-150); VLDL Cholestrol Calculation 20 mg/dL (0-30)
[2019-11-25] MEDS: fluoxetine 10 mg Capsule PO (07:55)
[2019-11-25] MEDS: oseltamivir phosphate 75 mg Capsule PO ×2 (07:55→17:19)
[2019-11-25] MEDS: guaiFENesin 600 mg Tablet 1200 MG PO ×2 (07:55→17:19)
[2019-11-25] MEDS: predniSONE 20 mg Tablet 40 MG PO (07:55)
[2019-11-25] MEDS: aspirin 325 mg EC Tablet PO (07:56)
[2019-11-25] MEDS: acetaminophen 325 mg Tablet 650 MG PO ×2 (08:24→22:10)
[2019-11-25 11:19] LABS: Glucose Point of Care 204 mg/dL (70-110)
[2019-11-25 11:19] LABS: Glucose Point of Care 154 mg/dL (70-110)
[2019-11-25 11:19] LABS: Glucose Point of Care 152 mg/dL (70-110)
--- NOTE | 2019-11-25 14:24 | P.PN_ITS ---
Subjective Subjective: Interval history: No acute events overnight. On examination today morning patient is complaining of feeling weak. Patient wants to remain on BiPAP as it makes him feel a little relaxed. Patient himself denies of having any shortness of breath, cough, expectoration, headache, nausea, vomiting. Worked well with physical therapy in room today. Medications: Reviewed: Yes Vitals/I&O/Wt Last Vital Signs Temp 98.2 F 11/25/19 00:00 Pulse 74 11/25/19 14:00 Resp 13 11/25/19 14:00 BP 156/99 11/25/19 14:00 Pulse Ox 96 11/25/19 14:00 11/24/19 11/25/19 11/25/19 22:59 06:59 14:59 Intake Total 350 / 400 450.0 / 850.0 650 / 650 Output Total 650 / 650 2100 / 2750 1650 / 1650 Balance -300 / -250 -1650.0 / -1900.0 -1000 / -1000 Physical Exam Narrative: EXAM NARRATIVE: GENERAL: Averagely built and averagely nourished HEENT: Pupils equal round reactive to light. No pallor or icterus. NECK: No JVD, No carotid bruit. CARDIOVASCULAR SYSTEM: S1-S2 regular. No murmur rubs or gallops. RESPIRATORY SYSTEM: decreased air entry bilateral bases, bilateral rhonchi + ABDOMEN: Soft, nontender and nondistended. Normal bowel sounds present. EXTREMITIES: No cyanosis or clubbing. 1+ left>right pedal edema. 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 No focal neurological deficits. Urinary Catheter Management^: Moore: Cath Placed During This Visit: yes Urethral Indwelling: No Reason for Continuing Indwelling Catheter: Accurate Measurement of Urinary O utput in Critically Ill Patients Urinary Catheter Date of Insertion: 11/20/19 Urinary Catheter Time of Insertion: 20:56 Data : 11/24/19 03:51 11/24/19 03:51 Micro: Microbiology 11/23/19 15:48 Gram Stain - Final Cerebrospinal Fluid CSF Culture - Preliminary A&P Assessment and plan (1) Respiratory failure: -Appreciate pulmonology consult. -Seems to be improving gradually. -C/w incentive spirometry and flutter valve. -Continue with Tamiflu and IV antibiotics. -Continue with prednisone 40 mg daily. Day 2/5 today -If continues to do well probable transfer to the floor tomorrow. Status: Acute Qualifiers: Chronicity: acute Respiratory failure complication: hypoxia and hypercapnia Qualified Code(s): J96.01 - Acute respiratory failure with hypoxia; J96.02 - Acute respiratory failure with hypercapnia Code(s): J96.90 - Respiratory failure, unspecified, unspecified whether with hypoxia or hypercapnia (2) Pneumonia: Status: Acute Code(s): J18.9 - Pneumonia, unspecified organism (3) Influenza due to influenza virus, type A, human: On Tamiflu Status: Acute Code(s): J10.1 - Influenza due to other identified influenza virus with other respiratory manifestations (4) Non-ST elevation MO (NSTEMI): This is likely a non-ST elevation acute coronary syndrome type II in setting of hypoxia and respiratory distress. -Recent stress test with fixed perfusion defect of entire inferior and basal to mid inferolateral kessler suggestive for myocardial infarction versus scarring. In absence of prone imaging artifact could not be ruled out. No evidence of ischemia on EKG. C/w ASA. Lipid panel appreciated. We will hold off on any statin for now.. ECHO results appreciated. Cardiology results appreciated. Once patient recovers from pneumonia and influenza may consider coronary angiogram as an outpatient, if patient continues to be symptomatic. Status: Acute Code(s): I21.4 - Non-ST elevation (NSTEMI) myocardial infarction (5) Diabetes: Status: Acute Qualifiers: Diabetes mellitus type: type 2 Code(s): E11.9 - Type 2 diabetes mellitus without complications Additional A&P Information Chronic respiratory failure: On reviewing the chart and history most likely due to neuromuscular disorder. CSF studies sent yesterday. ALS is also 1 of the considerations. Will discuss with Dr. Saldivar to see if studies to be added to CSF already sent yesterday. Patient would most likely need IVIG treatment once influenza acute event is surpassed. Full code. Lovenox for DVT prophylaxis. Protonix for PUD prophylaxis. Attestations Medical Necessity Statement*: Acute on chronic respiratory failure. Flu A+ Time Spent in Patient Care: Greater than 35 minutes Coding Level of Care Code Acute Manager Balance for [facility] Diagnoses Respiratory failure J96.01; J96.02 Chronicity: acute Respiratory failure complication: hypoxia and hypercapnia Pneumonia J18.9 Influenza due to influenza virus, type A, human J10.1 Non-ST elevation MO (NSTEMI) I21.4 Diabetes E11.9 Diabetes mellitus type: type 2
[2019-11-25] MEDS: morphine 4 mg/mL SDV 1 mL 1 MG IVP (14:44)
[2019-11-25] MEDS: ketorolac 30 mg/mL INJ 15 MG IVP (15:52)
[2019-11-25] MEDS: amlodipine 10 mg Tablet PO (17:19)
[2019-11-25 17:22] LABS: Glucose Point of Care 245 mg/dL (70-110)
[2019-11-25 17:57] LABS: Glucose Point of Care 145 mg/dL (70-110)
[2019-11-26] VITALS (21 sets, daily range): BP systolic 117–160; BP diastolic 78–98; PULSE 68–89; RESP 10–26; TEMP 36.6–36.9; O2SAT 91–97
[2019-11-26] MEDS: enoxaparin 40 mg/0.4 mL Syringe SUBCUT (01:32)
[2019-11-26] MEDS: levofloxacin-dextrose 5 % 750 MG/150 ML PREMIX 100 MG IV (01:32)
[2019-11-26] MEDS: piperacillin-tazobactam 3.375 GM in sodium chloride 0.9% (plus) 50 ML IV (05:08)
[2019-11-26 05:10] LABS: Basophils % 0.2 %; Eosinophils % 0.3 %; Hematocrit 33.1 % (42.0-52.0); Hemoglobin 10.4 g/dL (11.7-16.6); Lymphocytes % 31.6 %; Mean Corpuscular HGB Conc 31.4 g/dL (30.0-36.0); Mean Corpuscular Hemoglobin 25.2 pg (28.0-34.0); Mean Corpuscular Volume 80.3 fL (80-94); Mean Platelet Volume 10.5 fL (7.4-10.4); Monocytes # 0.5 10^3/uL (0.2-0.9); Neutrophils # 3.7 10^3/uL (1.8-7.7); Neutrophils % 59.3 %; Nucleated Red Blood Cells % 0 %; Platelet Count 285 10^3/cmm (130-400); Red Blood Count 4.12 10^6/uL (4.1-5.3); White Blood Count 6.3 10^3/uL (4.0-10.0)
[2019-11-26 05:39] LABS: Alanine Aminotransferase 12 U/L (0-41); Alkaline Phosphatase 52 IU/L (40-130); Anion Gap 13.9 (5-19); Aspartate Amino Transferase 12 U/L (0-40); Blood Urea Nitrogen 8 mg/dL (8-23); Calcium 9.2 mg/dL (8.5-10.5); Carbon Dioxide 29 mmol/L (22-29); Chloride 99 mmol/L (98-107); Creatinine Clr Calc Pharmacy 151.3695; Globulin 2.5 g/dL (1.3-4.6); Glomerular Filtration Rate 135.6 mL/min (90-130); Glucose 149 mg/dL (65-115); Potassium 3.9 mmol/L (3.5-5.1); Sodium 138 mmol/L (136-145); Total Bilirubin 0.2 mg/dL (0.15-1.2); Total Protein 5.5 g/dL (6.6-8.7)
[2019-11-26 06:14] LABS: Glucose Point of Care 133 mg/dL (70-110)
[2019-11-26 06:30] LABS: Slide Review Slide Review Perform
[2019-11-26] MEDS: ketorolac 30 mg/mL INJ 15 MG IVP (07:42)
[2019-11-26 07:57] LABS: Glucose Point of Care 100 mg/dL (70-110)
[2019-11-26] MEDS: predniSONE 20 mg Tablet 40 MG PO (08:43)
[2019-11-26] MEDS: amlodipine 10 mg Tablet PO (08:43)
[2019-11-26] MEDS: aspirin 325 mg EC Tablet PO (08:43)
[2019-11-26] MEDS: guaiFENesin 600 mg Tablet 1200 MG PO ×2 (08:43→17:46)
[2019-11-26] MEDS: morphine 4 mg/mL SDV 1 mL 1 MG IVP ×2 (08:47→12:26)
--- NOTE | 2019-11-26 08:54 | FL_ITS ---
WS: [id number] [place] sniff test [id number] REASON FOR EXAM: weakness FLUOROSCOPY TIME: 0.3 minutes FINDINGS: Normal motion of the diaphragms bilaterally are noted. With the sniff maneuver there appears to be motion occurring in the diaphragm. FL/FL sniff test [id number] IMPRESSION: Normal sniff test.
[2019-11-26] MEDS: fluoxetine 10 mg Capsule PO (08:55)
--- NOTE | 2019-11-26 09:24 | P.PN_ITS ---
Subjective Subjective: Interval history: The patient was seen and examined this morning. Over the weekend, the patient had several episodes when he desaturated and required BiPAP. Overall the patient seems to be doing okay. I have reviewed the patient's previous records in detail. On the EMG the patient had evidence of axonal degeneration. On the sural nerve biopsy from the left lower extremity there was significant decline in the nerve fibers and there was significant nerve dropout with intact myelin sheath. The patient has developed pes cavus. His lower extremity swelling is better today. Medications: Reviewed: Yes Vitals/I&O/Wt Last Vital Signs Temp 98.1 F 11/26/19 02:00 Pulse 84 11/26/19 08:00 Resp 17 11/26/19 08:47 BP 157/98 11/26/19 08:00 Pulse Ox 94 11/26/19 08:00 11/25/19 11/26/19 11/26/19 22:59 06:59 14:59 Intake Total 350 / 1000 1300 / 2300 240 / 240 Output Total 1350 / 3000 1950 / 4950 Balance -1000 / -2000 -650 / -2650 240 / 240 Physical Exam Narrative: EXAM NARRATIVE: General: Patient is awake alert and oriented, in no distress while resting. HEENT: Pupil bilateral symmetric, light and accommodation reflex present, extraocular muscle movement intact, no deformity of the nose, mildly congested nasal mucosa Neck: No JVD, no cervical or supraclavicular lymphadenopathy. Respiratory: Inspection: No visible deformity of the chest wall, no scar, paradoxical abdominal movement with inspiration Palpation: Trachea is mildly deviated to the right, bilateral reduced but symmetric expansion Percussion: Bilateral tympanic percussion note both anteriorly Auscultation: Vesicular breath sound, no crackles or wheezing but occasional rhonchi bilaterally Cardiovascular: Regular rate and rhythm, S1-S2 present, no murmur, no right ventricular heave, mild peripheral edema. Abdomen: Soft, nontender, nondistended, positive bowel sound. No palpable organomegaly. Musculoskeletal: Loss of muscle mass in bilateral lower extremity below knee, pes cavus deformity in both feet Neuro: Mental status is normal, no gross cranial nerve deficit, the patient is unable to lift his lower extremity against gravity, there is minimal if any dorsiflexion and plantarflexion function at the ankles Urinary Catheter Management^: Moore: Cath Placed During This Visit: yes Urethral Indwelling: No Reason for Continuing Indwelling Catheter: Accurate Measurement of Urinary Output in Critically Ill Patients Urinary Catheter Date of Insertion: 11/20/19 Urinary Catheter Time of Insertion: 20:56 Data : 11/26/19 04:36 11/26/19 04:36 Micro: Microbiology 11/20/19 18:10 Blood Culture - Final Blood NO GROWTH AFTER 5 DAYS 11/20/19 17:52 Blood Culture - Final Blood NO GROWTH AFTER 5 DAYS 11/23/19 15:48 Gram Stain - Final Cerebrospinal Fluid CSF Culture - Preliminary A&P Assessment and plan (1) 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 The patient has pes cavus deformity bilaterally. There is significant loss of muscle mass below the knee . The patient does not give any family history of neuropathy. 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 I am going to send the [facility] 22 genetic mutation testing with next generation sequencing. Status: Acute Code(s): G62.9 - Polyneuropathy, unspecified (2) Acute and chronic respiratory failure with hypercapnia: The acute on chronic hypercapnic respiratory failure is secondary to the flu. The patient clinically does not have any evidence of significant pneumonia. He has completed 5-day course of Tamiflu and was treated with broad- spectrum antibiotic as well. The patient has significant diaphragmatic weakness from his neuropathy. I am going to obtain a sniff test today. Discontinue steroids as this might cause worse myopathy. We will get spirometry and negative inspiratory force. Status: Acute Code(s): J96.22 - Acute and chronic respiratory failure with hypercapnia (3) Influenza due to influenza virus, type A, human: The patient has completed Tamiflu for 5 days and has been treated with broad-spectrum antibiotic for 5 days. Status: Acute Code(s): J10.1 - Influenza due to other identified influenza virus with other respiratory manifestations (4) Benign intracranial hypertension: On lumbar puncture, the patient had elevated intracranial pressure and interestingly had a CSF protein level of 0 which can be seen in patients with benign intracranial hypertension due to Eflux of the protein out of the CSF. The patient is most likely going to need acetazolamide. There have been reported cases of charcot Donya tooth disease with benign intracranial hypertension. 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
--- NOTE | 2019-11-26 11:02 | PM.CONSULT ---
Providers/Reason For Consult Consulting Physican/Specialty*: Anesthesia Reason for Consult*: Postdural Puncture Headache Requesting Physcian: Suzanne Saldivar MD Attending Physician: Zeb Brownlee MD Primary Care Provider: Zeb Brownlee MD History of Present Illness History of Present Illness Shaq Churchill is a 64 year old male who had spinal tap thursday 11/23. I was asked to evaluate him for PDPH and possible blood patch on 11/25. This is a late entry. Patient presented with classical positional frontal headache with nausea, which becomes severe with upright positioning. With recumbent or semirecumbent positioning patient has minimal headache. 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 After discussing natural course of PDPH, and treatment options, including conservative treatment and waiting vs immediate blood patch, patient elected to try conservative treatment. He is hoping to avoid invasive treatment and was concerned about the possibilty of second post dural puncture headache with the intervention. I informed patient he can elect to proceed with blood patch at any time. Review of Systems General: Reports: 10 or more systems reviewed and unremarkable except in HPI and below, ROS unobtainable due to medical condition (except as mentioned below) and other (Overall unobtainable outside of what was mentioned above. He is struggling to breathe at this point enough that is hard for him to communicate.) Narrative: The patient complains of shortness of breath however I am unable to obtain a complete review of system because of his clinical condition. Const: Reports: fever, body aches and malaise Eyes: Denies: change in vision or blurry vision ENMT: Denies: throat pain, enlarged tonsils, painful swallowing, hoarseness, mouth pain or swelling of lips/tongue Card: Reports: chest pain (with coughing) and edema Resp: Reports: shortness of breath; Denies: productive cough or non-productive cough GI: Denies: abdominal pain, nausea or vomiting : Denies: flank pain, painful urination, urinary frequency, urinary urgency or urinary hesitancy Musc: Denies: neck pain, back pain or extremity swelling Skin/Breast: Denies: rash, itching or redness Neuro: Denies: headache, numbness in extremities or weakness in extremities Endo: Denies: excessive urination, excessive thirst or tired all the time Meds/Allergies Home Medications and Allergies Home Medications Medication Instructions Recorded Confirmed Type albuterol sulfate 2 puff INHALATION QID PRN 11/21/19 11/21/19 History doxycycline hyclate 1 tab PO BID 11/21/19 11/21/19 History hydrocodone-acetaminophen See Rx Instructions .ROUTE 11/21/19 11/21/19 History .COMPLEX PRN ondansetron 4 mg PO Q6H PRN 11/21/19 11/21/19 History prednisone 20 mg PO DAILY 11/21/19 11/21/19 History tamsulosin 0.4 mg PO BEDTIME 11/21/19 11/21/19 History temazepam 15 mg PO BEDTIME PRN 11/21/19 11/21/19 History Allergies Allergy/AdvReac Type Severity Reaction Status Date / Time No Known Allergies Allergy Verified 11/20/19 17:42 Current Medications Current Medications Generic Name Dose Route Start Last Admin Trade Name Freq PRN Reason Stop Dose Admin Acetaminophen 650 mg 11/24/19 05:42 11/27/19 08:36 Tylenol PO 650 mg Q4H PRN Administration MILD PAIN OR INCREASE TEMP Alprazolam 1 mg 11/22/19 15:51 11/27/19 11:46 Xanax PO 1 mg Q8H PRN Administration ANXIETY Amlodipine Besylate 10 mg 11/25/19 16:55 11/27/19 08:22 Norvasc PO 10 mg DAILY GUDELIA Administration Aspirin 325 mg 11/21/19 09:00 11/27/19 08:22 Aspirin Ec PO 325 mg DAILY GUDELIA Administration Enoxaparin Sodium 40 mg 11/21/19 00:30 11/27/19 02:54 Lovenox SUBCUT 40 mg Q24H GUDELIA Administration Fluoxetine HCl 10 mg 11/23/19 09:00 11/27/19 08:22 Prozac PO 10 mg DAILY GUDELIA Administration Guaifenesin 1,200 mg 11/23/19 09:00 11/27/19 08:22 Mucinex PO 1,200 mg BID GUDELIA Administration Insulin Aspart 0 unit 11/24/19 12:00 11/27/19 12:03 Novolog SUBCUT Not Given WM&BEDTIME [facility] Protocol Lanolin 1 applic 11/22/19 08:08 11/22/19 11:12 Lanolin Oint TOPICAL 1 tube PRN PRN Administration DRYNESS Magnesium Hydroxide 30 ml 11/22/19 15:53 11/24/19 11:49 Milk Of Magnesia PO 30 ml BID PRN Administration CONSTIPATION Morphine Sulfate 1 mg 11/25/19 14:31 11/26/19 12:26 Morphine IVP 1 mg Q3H PRN Administration SEVERE PAIN PFSH Acute PFSH: Medical History Achilles rupture Diabetes Hypertension Neuropathy Patella fracture Family History Other CHF (congestive heart failure) Heart disease Social History Smoking and tobacco status: never smoked Vitals/I&O/Wt Last Vital Signs Temp 97.8 F 11/27/19 11:21 Pulse 69 11/27/19 11:21 Resp 18 11/27/19 11:21 BP 180/74 11/27/19 11:21 Pulse Ox 96 11/27/19 11:21 11/26/19 11/27/19 11/27/19 22:59 06:59 14:59 Intake Total 550 / 1190 240 / 240 Output Total 3850 / 4650 1400 / 6050 900 / 900 Balance -3300 / -3460 -1400 / -4860 -660 / -660 Physical Exam Urinary Catheter Management^: Moore: Cath Placed During This Visit: yes Urethral Indwelling: No Reason for Continuing Indwelling Catheter: Accurate Measurement of Urinary Output in Critically Ill Patients Urinary Catheter Date of Insertion: 11/20/19 Urinary Catheter Time of Insertion: 20:56 Data Micro: Micro: Microbiology 11/23/19 15:48 Gram Stain - Final Cerebrospinal Flu id CSF Culture - Ai l A&P Assessment and plan (1) Headache: The headache is likely secondary to the spinal tap. The patient is drinking a significant volume of water and drinking caffeine. I had asked the anesthesia team to discuss the option of doing a blood patch with him. The patient for now would like to see if it gets better if not he will consider a blood patch. It appears that the symptoms are better than yesterday. The significant spinal headache could be secondary to the elevated intracranial pressure which is likely causing more CSF leak. 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 I have discussed with the patient that if it does bowl turner to be positive for the genetic mutation his family members are likely to need to get tested as well. The patient expressed understanding. Status: Acute Code(s): G62.9 - Polyneuropathy, unspecified (3) Acute and chronic respiratory failure with hypercapnia: The patient respiratory status is better today. His lung exam is better and I think his respiratory status is going to get somewhat better. The patient will be discharged to a rehab with BiPAP that he can use at night as well as during the day if he needs it. I have asked the patient to follow-up with me in 2 to 4 weeks time after he is discharged. Status: Acute Code(s): J96.22 - Acute and chronic respiratory failure with hypercapnia (4) Influenza due to influenza virus, type A, human: Therapy has been completed for flu and pneumonia. Status: Acute Code(s): J10.1 - Influenza due to other identified influenza virus with other respiratory manifestations (5) Benign intracranial hypertension: I have asked the patient to carry the result for the CSF study and the elevated opening pressure when he goes to see his neurologist in [place] or [place]. Status: Acute Code(s): G93.2 - Benign intracranial hypertension Additional A&P Information Leucocytosis Anemia Hyponatremia Polyarthritis Neuropathy History of DVT in August 2019 History of vitamin B12 deficiency Thank you for allowing me to participate in patient's care. Please feel free to call with questions or concerns. I will sign off. Consult Attestations Time Spent in Patient Care: 16 - 35 minutes (>than 50% of time spent in counselling and/or direct pt care on unit). 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
[2019-11-26 11:34] LABS: Glucose Point of Care 148 mg/dL (70-110)
--- NOTE | 2019-11-26 13:51 | PC.CHAP ---
Pastoral Care Encounter/Spiritual Assessment Type of Contact [] Declined harbor master visit [] Patient/Family/Request visit [] Outpatient visit [] Follow-up visit [] Physician referral [] Code/Alert [x] Routine visit [] Staff referral [] Actively dying [] Patient sleeping [] Family support [] [] Out of room [] Palliative care [] [] Receiving care in room [] Pre-surgical visit [] Trauma [x] Long length of stay [x] ICU visit [] Other: Relational/Emotional Strength [] Patient feels connected with others/family/visitors/staff [X] Distress [] Loneliness/isolation [] Abandonment Spirituality of Patient [] Person of Tammie [] Attends Yarsanism of their Tammie [x] Believes in Prayer [] Reads Bible or Yazidism materials [] There are Spiritual issues to be addressed Land Acquisition Analyst Interventions [] Prayer [x] Active listening [x Non-anxious presence [X] Spiritual/emotional support [] Crisis/trauma care [] Spiritual counseling [] Bereavement support [] Provided bereavement packet [] Provided Bible/devotional materials [] Provided toy/stuffed animal, coloring book to patient or family member [] Provided Communion [] Anointing/[place] [] Salvation [x] Completed spiritual assessment [] Other: Impact on Illness or Injury [] Angry [] Fearful [] Anxious [] Often cries [x] Exhaustion [] Unable to work [] Unable to attend zoroastrian [] Unable to walk/stand [] Unable to read [] Unable to drive [] Unable to eat/drink [] Unable to sleep [] Unable to be with family [] Patient intubated [] Other: Summary Patient expressed that He was exhausted And felt like he has been ?beaten with a hammer.? He Stated that he had just had a procedure done and that someone had prayed with him already and didn?t need anything from the chaplains. Patient was visited by Land Acquisition Analyst Ritesh Niño Time spent with patient 13 minutes
--- NOTE | 2019-11-26 16:45 | PM.PN ---
Subjective Subjective: Interval history: Patient seems to be improving some. Less short of breath. Still having quite a bit headache from the lumbar puncture. No fevers or chills. Able to be weaned down on oxygen but still requiring some BiPAP. Medications: Reviewed: Yes Vitals/I&O/Wt Last Vital Signs Temp 98.5 F 11/26/19 14:00 Pulse 83 11/26/19 16:00 Resp 16 11/26/19 16:00 BP 159/95 11/26/19 16:00 Pulse Ox 96 11/26/19 16:00 11/26/19 11/26/19 11/26/19 06:59 14:59 22:59 Intake Total 1300 / 2300 640 / 640 Output Total 1950 / 4950 800 / 2900 2100 / 2900 Balance -650 / -2650 -160 / -2260 -2100 / -2260 Physical Exam Narrative: EXAM NARRATIVE: General: No acute distress, Alert. Well nourished. Heart: Regular rate and rhythm. No murmurs, rubs or gallops. Normal capillary refill. Lungs: Relatively clear to auscultation. Abdomen: Positive bowel sounds. Non-tender, non-distended. No hepatosplenomegaly. No gaurding. Extremities: No clubbing, cyanosis, or edema. Negative Patricia's Urinary Catheter Management^: Moore: Cath Placed During This Visit: yes Urethral Indwelling: No Reason for Continuing Indwelling Catheter: Accurate Measurement of Urinary Output in Critically Ill Patients Urinary Catheter Date of Insertion: 11/20/19 Urinary Catheter Time of Insertion: 20:56 Data : 11/26/19 04:36 11/26/19 04:36 Micro: Microbiology 11/23/19 15:48 Gram Stain - Final Cerebrospinal Fluid CSF Culture - Preliminary 11/20/19 18:10 Blood Culture - Final Blood NO GROWTH AFTER 5 DAYS 11/20/19 17:52 Blood Culture - Final Blood NO GROWTH AFTER 5 DAYS A&P Assessment and plan (1) Pneumonia: -Appreciate pulmonology consult. -Seems to be improving some. Seems to be improving. Blood work looks good. -Continue to wean down oxygen. -Transfer to the floor today. Status: Acute Code(s): J18.9 - Pneumonia, unspecified organism (2) Influenza due to influenza virus, type A, human: -Resolved. Stop Tamiflu. Status: Acute Code(s): J10.1 - Influenza due to other identified influenza virus with other respiratory manifestations (3) Respiratory failure: Improving as above. Status: Acute Qualifiers: Chronicity: acute Respiratory failure complication: hypoxia and hypercapnia Qualified Code(s): J96.01 - Acute respiratory failure with hypoxia; J96.02 - Acute respiratory failure with hypercapnia Code(s): J96.90 - Respiratory failure, unspecified, unspecified whether with hypoxia or hypercapnia (4) Non-ST elevation [place] (NSTEMI): -Continue current care. -Appreciate cardiology's consultation. Status: Acute Code(s): I21.4 - Non-ST elevation (NSTEMI) myocardial infarction (5) Polyarthritis: Status: Acute Code(s): M13.0 - Polyarthritis, unspecified (6) Diabetes: Status: Acute Qualifiers: Diabetes mellitus type: type 2 Code(s): E11.9 - Type 2 diabetes mellitus without complications (7) Neuropathy: Status: Acute Code(s): G62.9 - Polyneuropathy, unspecified Attestations Medical Necessity Statement*: 64-year-old gentleman with pneumonia and flu requiring continued inpatient monitoring and treatment. 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
[2019-11-26 17:02] LABS: Glucose Point of Care 196 mg/dL (70-110)
--- NOTE | 2019-11-26 18:10 | PC.NURSE ---
Report called to Girish Saldana LPN. Patient taken to room 276 bed 1 via bed on 3L/NC. Patient oriented to room and call light. Bed in lowest position and wheels locked. Nurse in room at time of transfer.
--- NOTE | 2019-11-26 18:58 | PC.RESP ---
Addendum entered by Merle Alva, RT 11/27/19 15:44: NIF X 3 NIF #1-20, #2 -18, #3 -22 Original Note: NIF -22
[2019-11-26 20:43] LABS: Glucose Point of Care 173 mg/dL (70-110)
[2019-11-27] VITALS (12 sets, daily range): BP systolic 123–180; BP diastolic 74–85; PULSE 69–96; RESP 13–18; TEMP 36.2–36.8; O2SAT 86–97
[2019-11-27] MEDS: enoxaparin 40 mg/0.4 mL Syringe SUBCUT (02:54)
[2019-11-27 06:40] LABS: Glucose Point of Care 97 mg/dL (70-110)
--- NOTE | 2019-11-27 06:49 | PM.PN ---
Subjective Subjective: Interval history: Patient is doing much better this morning. Significantly improved. Still using BiPAP overnight. O2 sats are better though. Headache is improved. No fevers or chills. No chest pain. Medications: Reviewed: Yes Vitals/I&O/Wt Last Vital Signs Temp 98.2 F 11/27/19 04:00 Pulse 77 11/27/19 04:00 Resp 16 11/27/19 04:00 BP 135/77 11/27/19 04:00 Pulse Ox 93 11/27/19 04:00 11/26/19 11/26/19 11/27/19 14:59 22:59 06:59 Intake Total 640 / 1190 550 / 1190 Output Total 800 / 6050 3850 / 6050 1400 / 6050 Balance -160 / -4860 -3300 / -4860 -1400 / -4860 Physical Exam Narrative: EXAM NARRATIVE: General: No acute distress, Alert. Well nourished. Heart: Regular rate and rhythm. No murmurs, rubs or gallops. Normal capillary refill. Lungs: Relatively clear to auscultation. Abdomen: Positive bowel sounds. Non-tender, non-distended. No hepatosplenomegaly. No gaurding. Extremities: No clubbing, cyanosis, or edema. Negative Patricia's Urinary Catheter Management^: Moore: Cath Placed During This Visit: yes Urethral Indwelling: No Reason for Continuing Indwelling Catheter: Accurate Measurement of Urinary Output in Critically Ill Patients Urinary Catheter Date of Insertion: 11/20/19 Urinary Catheter Time of Insertion: 20:56 Data : 11/26/19 04:36 11/26/19 04:36 Micro: Microbiology 11/23/19 15:48 Gram Stain - Final Cerebrospinal Fluid CSF Culture - Preliminary A&P Assessment and plan (1) Pneumonia: -Appreciate pulmonology consult. -Seems to be improving . -Continue to wean down oxygen. -business services sales agent to start working on rehab placement and also to assist with getting him set up with BiPAP and oxygen when he is discharged. Patient's preference would be to go to [facility] for rehab.. Status: Acute Code(s): J18.9 - Pneumonia, unspecified organism (2) Influenza due to influenza virus, type A, human: -Resolved. Stop Tamiflu. Status: Acute Code(s): J10.1 - Influenza due to other identified influenza virus with other respiratory manifestations (3) Respiratory failure: Improving as above. Status: Acute Qualifiers: Chronicity: acute Respiratory failure complication: hypoxia and hypercapnia Qualified Code(s): J96.01 - Acute respiratory failure with hypoxia; J96.02 - Acute respiratory failure with hypercapnia Code(s): J96.90 - Respiratory failure, unspecified, unspecified whether with hypoxia or hypercapnia (4) Non-ST elevation [place] (NSTEMI): -Continue current care. -Appreciate cardiology's consultation. Status: Acute Code(s): I21.4 - Non-ST elevation (NSTEMI) myocardial infarction (5) Polyarthritis: Status: Acute Code(s): M13.0 - Polyarthritis, unspecified (6) Diabetes: Status: Acute Qualifiers: Diabetes mellitus type: type 2 Code(s): E11.9 - Type 2 diabetes mellitus without complications (7) Neuropathy: He will need continued follow-up with neurology. Right now his plan is to follow-up with his neurologist in [place] upon discharge and after definitive diagnosis has been established try to get treatments closer to home. Status: Acute Code(s): G62.9 - Polyneuropathy, unspecified Attestations Medical Necessity Statement*: 64-year-old male with respiratory distress who is improving. We will start to transition to rehab once we can get placement and approval of BiPAP. Coding Level of Care Code Acute Research Analyst for [facility] Fwd Diagnoses Pneumonia J18.9 Influenza due to influenza virus, type A, human J10.1 Respiratory failure J96.01; J96.02 Chronicity: acute Respiratory failure complication: hypoxia and hypercapnia Non-ST elevation [place] (NSTEMI) I21.4 Polyarthritis M13.0 Diabetes E11.9 Diabetes mellitus type: type 2 Neuropathy G62.9
[2019-11-27] MEDS: aspirin 325 mg EC Tablet PO (08:22)
[2019-11-27] MEDS: guaiFENesin 600 mg Tablet 1200 MG PO ×2 (08:22→17:08)
[2019-11-27] MEDS: amlodipine 10 mg Tablet PO (08:22)
[2019-11-27] MEDS: fluoxetine 10 mg Capsule PO (08:22)
[2019-11-27] MEDS: acetaminophen 325 mg Tablet 650 MG PO (08:36)
--- NOTE | 2019-11-27 09:46 | P.PN_ITS ---
Subjective Subjective: Interval history: Seen and examined Mr. Churchill this morning. He appears comfortable sleeping with the BiPAP without any significant respiratory difficulty. The patient was laying flat because of his headache that has been bothering him since the spinal tap. He had a sniff test done yesterday which showed diaphragmatic movement. The spirometry was consistent with very severe restriction with significantly reduced negative inspiratory force. The pulmonary function test is consistent with profound neuromuscular weakness. Medications: Reviewed: Yes Vitals/I&O/Wt Last Vital Signs Temp 97.7 F 11/27/19 07:39 Pulse 77 11/27/19 07:39 Resp 13 11/27/19 07:39 BP 138/85 11/27/19 07:39 Pulse Ox 95 11/27/19 07:39 11/26/19 11/27/19 11/27/19 22:59 06:59 14:59 Intake Total 550 / 1190 240 / 240 Output Total 3850 / 4650 1400 / 6050 Balance -3300 / -3460 -1400 / -4860 240 / 240 Physical Exam Narrative: EXAM NARRATIVE: General: Patient is awake alert and oriented, in no distress while resting. Neck: No JVD, no cervical or supraclavicular lymphadenopathy. Respiratory: Inspection: No visible deformity of the chest wall, no scar, paradoxical abdominal movement with inspiration Palpation: Trachea is mildly deviated to the right, bilateral reduced but sym metric expansion Percussion: Bilateral tympanic percussion note both anteriorly Auscultation: Vesicular breath sound, no crackles or wheezing or rhonchi today Cardiovascular: Regular rate and rhythm, S1-S2 present, no murmur, no right ventricular heave, mild peripheral edema. Abdomen: Soft, nontender, nondistended, positive bowel sound. No palpable organomegaly. Musculoskeletal: Loss of muscle mass in bilateral lower extremity below knee, pes cavus deformity in both feet Neuro: Mental status is normal, no gross cranial nerve deficit, the patient is unable to lift his lower extremity against gravity, there is minimal if any dorsiflexion and plantarflexion function at the ankles Urinary Catheter Management^: Moore: Cath Placed During This Visit: yes Urethral Indwelling: No Reason for Continuing Indwelling Catheter: Accurate Measurement of Urinary Output in Critically Ill Patients Urinary Catheter Date of Insertion: 11/20/19 Urinary Catheter Time of Insertion: 20:56 Data : 11/26/19 04:36 11/26/19 04:36 Micro: Microbiology 11/23/19 15:48 Gram Stain - Final Cerebrospinal Fluid CSF Culture - Preliminary Other data: Please see the HPI with in detail radiologic data The CSF culture is negative A&P Assessment and plan (1) Headache: The headache is likely secondary to the spinal tap. The patient is drinki ng a significant volume of water and drinking caffeine. I had asked the anesthesia team to discuss the option of doing a blood patch with him. The patient for now would like to see if it gets better if not he will consider a blood patch. It appears that the symptoms are better than yesterday. The significant spinal headache could be secondary to the elevated intracranial pressure which is likely causing more CSF leak. 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 The patient expressed understanding. Status: Acute Code(s): G62.9 - Polyneuropathy, unspecified (3) Acute and chronic respiratory failure with hypercapnia: The patient respiratory status is better today. His lung exam is better and I think his respiratory status is going to get somewhat better. The patient will be discharged to a rehab with BiPAP that he can use at night as well as during the day if he needs it. I have asked the patient to follow-up with me in 2 to 4 weeks time after he is discharged. Status: Acute Code(s): J96.22 - Acute and chronic respiratory failure with hypercapnia (4) Influenza due to influenza virus, type A, human: Therapy has been completed for flu and pneumonia. Status: Acute Code(s): J10.1 - Influenza due to other identified influenza virus with other respiratory manifestations (5) Benign intracranial hypertension: I have asked the patient to carry the result for the CSF study and the elevated opening pressure when he goes to see his neurologist in [place] or [place]. Status: Acute Code(s): G93.2 - Benign intracranial hypertension Attestations Medical Necessity Statement*: Will defer to the primary team Coding Level of Care Code Acute Training And Development Officer for [facility] Diagnoses Headache R51 Axonal polyneuropathy G62.9 Acute and chronic respiratory failure with hypercapnia J96.22 Influenza due to influenza virus, type A, human J10.1 Benign intracranial hypertension G93.2
[2019-11-27 12:09] LABS: Glucose Point of Care 135 mg/dL (70-110)
--- NOTE | 2019-11-27 14:38 | CT_ITS ---
WS: [id number] CT scan of the head, with and without IV contrast, 11/27/2019 Clinical Data: headaches Comparison: None. DLP: 1495.[address] scans at [facility] use at least one of these dose optimization techniques: automat ed exposure control; mA and/or kV adjustment per patient size (includes targeted exams where dose is matched to clinical indication); or iterative reconstruction. Findings: The ventricular system is honestly dilated without shift. There is small posterior left parietal enc ephalomalacia from a cerebral vascular accident. No recent infarct or hemorrhage is seen. There are n o abnormal intracerebral masses. No aneurysms are seen. The cerebellum and brainstem are not remarkab le. No abnormal contrast enhancement of any structure occurs. Bony windows of the skull and skull base show no fractures or erosions. The mastoid air cells, manufacturing intern al auditory canals, sella turcica, intraorbital contents, and paranasal sinuses show only minimal lef t sphenoid mucoperiosteal thickening. CT/CT head wo/w con [id number] Impression: 1. Negative for acute intracranial abnormalities. 2. Small region of encephalomalacia in the posterior left parietal lobe.
--- NOTE | 2019-11-27 15:15 | PC.CHAP ---
Pastoral Care Encounter/Spiritual Assessment Type of Contact [] Declined breakfast manager visit [x] Patient/Family/Request visit [] Outpatient visit [] Follow-up visit [] Physician referral [] Code/Alert [] Routine visit [] Staff referral [] Actively dying [] Patient sleeping [] Family support [] [x] Out of room [] Palliative care [] [] Receiving care in room [] Pre-surgical visit [] Trauma [] Long length of stay [] ICU visit [] Other: Relational/Emotional Strength [] Patient feels connected with others/family/visitors/staff [] Distress [] Loneliness/isolation [] Abandonment Spirituality of Patient [] Person of Tammie [] Attends Jew of their Tammie [] Believes in Prayer [] Reads Bible or Hoahaoism materials [] There are Spiritual issues to be addressed Loadmaster Interventions [] Prayer [] Active listening [] Non-anxious presence [] Spiritual/emotional support [] Crisis/trauma care [] Spiritual counseling [] Bereavement support [] Provided bereavement packet [] Provided Bible/devotional materials [] Provided toy/stuffed animal, coloring book to patient or family member [] Provided Communion [] Anointing/[place] [] Salvation [] Completed spiritual assessment [] Other: Impact on Illness or Injury [] Angry [] Fearful [] Anxious [] Often cries [] Exhaustion [] Unable to work [] Unable to attend moravian [] Unable to walk/stand [] Unable to read [] Unable to drive [] Unable to eat/drink [] Unable to sleep [] Unable to be with family [] Patient intubated [] Other: Summary Pt out for MRI and other test but may be discharged afterwards. Time spent with patient
[2019-11-27] MEDS: iohexol 300 mg/mL 100 mL Btl 95 ML IV (15:58)
[2019-11-27 16:31] LABS: Glucose Point of Care 124 mg/dL (70-110)
--- NOTE | 2019-11-27 20:46 | PC.RESP ---
Patient placed on room at this time for overnight pox study.
--- NOTE | 2019-11-27 20:50 | PC.RESP ---
patient placed on 3lpm at this time. patient spo2 dropped to 88% and below for 6 min. patient spo2 increased to 94 on 3lpm.
[2019-11-27 20:52] LABS: Glucose Point of Care 152 mg/dL (70-110)
[2019-11-27 22:11] LABS: Lyme Disease AB (IGG),IBL NO BANDS DETECTED; Lyme Disease AB (IGM), IBL NO BANDS DETECTED
[2019-11-27 23:33] LABS: VDRL on CSF NON-REACTIVE
[2019-11-28] VITALS (10 sets, daily range): BP systolic 136–153; BP diastolic 76–88; PULSE 68–93; RESP 11–20; TEMP 36.4–36.7; O2SAT 92–97
[2019-11-28] MEDS: enoxaparin 40 mg/0.4 mL Syringe SUBCUT (02:03)
--- NOTE | 2019-11-28 06:04 | P.PN_ITS ---
Subjective Subjective: Interval history: Followed up with patient this morning regarding PDPH. Headache is still present with upright positioning and patient states he would now like to proceed with blood patch. He received lovenox at 0200 so we must wait 12 hrs before proceeding. We will bring him down to same day surgery this afternoon for blood patch. After procedure is completed lovnenox will need to be held for 12 hrs. He has been couseled on risks including infection, failed procedure, and second dural puncture. Medications: Reviewed: Yes Vitals/I&O/Wt Last Vital Signs Temp 97.9 F 11/28/19 04:00 Pulse 85 11/28/19 04:00 Resp 20 H 11/28/19 04:00 BP 153/77 11/28/19 04:00 Pulse Ox 96 11/28/19 04:00 11/27/19 11/27/19 11/28/19 14:59 22:59 06:59 Intake Total 240 / 240 240 / 480 300 / 780 Output Total 900 / 900 2700 / 3600 2000 / 5600 Balance -660 / -660 -2460 / -3120 -1700 / -4820 Physical Exam Urinary Catheter Management^: Moore: Cath Placed During This Visit: yes Urethral Indwelling: No Reason for Continuing Indwelling Catheter: Accurate Measurement of Urinary Output in Critically Ill Patients Urinary Catheter Date of Insertion: 11/20/19 Urinary Catheter Time of Insertion: 20:56 Data : 11/26/19 04:36 11/26/19 04:36 Micro: Microbiology 11/23/19 15:48 Gram Stain - Final Cerebrospinal Fluid CSF Culture - Final A&P Assessment and plan (1) Headache: PDPH Status: Acute Code(s): R51 - Headache (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 The patient expressed understanding. Status: Acute Code(s): G62.9 - Polyneuropathy, unspecified (3) Acute and chronic respiratory failure with hypercapnia: The patient respiratory status is better today. His lung exam is better and I think his respiratory status is going to get somewhat better. The patient will be discharged to a rehab with BiPAP that he can use at night as well as during the day if he needs it. I have asked the patient to follow-up with me in 2 to 4 weeks time after he is discharged. Status: Acute Code(s): J96.22 - Acute and chronic respiratory failure with hypercapnia (4) Influenza due to influenza virus, type A, human: Therapy has been completed for flu and pneumonia. Status: Acute Code(s): J10.1 - Influenza due to other identified influenza virus with other respiratory manifestations (5) Benign intracranial hypertension: I have asked the patient to carry the result for the CSF study and the elevated opening pressure when he goes to see his neurologist in [place] or [place]. Status: Acute Code(s): G93.2 - Benign intracranial hypertension Additional A&P Information Leucocytosis Anemia Hyponatremia Polyarthritis Neuropathy History of DVT in August 2019 History of vitamin B12 deficiency Thank you for allowing me to participate in patient's care. Please feel free to call with questions or concerns. I will sign off. Attestations Medical Necessity Statement*: Acute respiratory failure Coding Level of Care Code Acute Jewelry Polisher for [facility] Diagnoses Headache R51 Axonal polyneuropathy G62.9 Acute and chronic respiratory failure with hypercapnia J96.22 Influenza due to influenza virus, type A, human J10.1 Benign intracranial hypertension G93.2
[2019-11-28 06:24] LABS: Glucose Point of Care 101 mg/dL (70-110)
--- NOTE | 2019-11-28 06:58 | PM.PN ---
Subjective Subjective: Interval history: Date of service is 11/28/2019 Patient still has a headache. Pretty severe. Unable to get up with it. He declined blood patch yesterday. We will try to proceed with that again today. Shortness of breath seems to be improved. Still requiring BiPAP through the day though. No fevers or chills. No chest pain. Medications: Reviewed: Yes Vitals/I&O/Wt Last Vital Signs Temp 98.4 F 11/29/19 03:44 Pulse 63 11/29/19 03:44 Resp 19 H 11/29/19 03:44 BP 129/73 11/29/19 03:44 Pulse Ox 92 11/29/19 03:44 11/28/19 11/28/19 11/29/19 14:59 22:59 06:59 Intake Total 480 / 1350 420 / 1350 450 / 1350 Output Total 400 / 2425 450 / 2425 1575 / 2425 Balance 80 / -1075 -30 / -1075 -1125 / -1075 Physical Exam Narrative: EXAM NARRATIVE: General: No acute distress, Alert. Well nourished. Heart: Regular rate and rhythm. No murmurs, rubs or gallops. Normal capillary refill. Lungs: Relatively clear to auscultation. Abdomen: Positive bowel sounds. Non-tender, non-distended. No hepatosplenomegaly. No gaurding. Extremities: No clubbing, cyanosis, or edema. Negative Patricia's Urinary Catheter Management^: Moore: Cath Placed During This Visit: yes Urethral Indwelling: No Reason for Continuing Indwelling Catheter: Accurate Measurement of Urinary Output in Critically Ill Patients Urinary Catheter Date of Insertion: 11/20/19 Urinary Catheter Time of Insertion: 20:56 Data : 11/28/19 07:02 11/28/19 07:02 A&P Assessment and plan (1) Pneumonia: -Appreciate pulmonology consult. -Seems to be improving . -Continue to wean down oxygen. -Plan for discharge after blood patch is placed. Status: Acute Code(s): J18.9 - Pneumonia, unspecified organism (2) Influenza due to influenza virus, type A, human: -Resolved. Stop Tamiflu. Status: Acute Code(s): J10.1 - Influenza due to other identified influenza virus with other respiratory manifestations (3) Respiratory failure: Improving as above. Status: Acute Qualifiers: Chronicity: acute Respiratory failure complication: hypoxia and hypercapnia Qualified Code(s): J96.01 - Acute respiratory failure with hypoxia; J96.02 - Acute respiratory failure with hypercapnia Code(s): J96.90 - Respiratory failure, unspecified, unspecified whether with hypoxia or hypercapnia (4) Non-ST elevation [place] (NSTEMI): -Continue current care. -Appreciate cardiology's consultation. Status: Acute Code(s): I21.4 - Non-ST elevation (NSTEMI) myocardial infarction (5) Polyarthritis: Status: Acute Code(s): M13.0 - Polyarthritis, unspecified (6) Diabetes: Status: Acute Qualifiers: Diabetes mellitus type: type 2 Code(s): E11.9 - Type 2 diabetes mellitus without complications (7) Neuropathy: He will need continued follow-up with neurology. Right now his plan is to follow-up with his neurologist in [place] upon discharge and after definitive diagnosis has been established try to get treatments closer to home. Status: Acute Code(s): G62.9 - Polyneuropathy, unspecified Attestations Medical Necessity Statement*: Patient should be ready for discharge later today. Disposition will be dependent on getting acceptance at rehab facility. Coding Level of Care Code Acute Apparel Machinery Instructor for [facility] Diagnoses Pneumonia J18.9 Influenza due to influenza virus, type A, human J10.1 Respiratory failure J96.01; J96.02 Chronicity: acute Respiratory failure complication: hypoxia and hypercapnia Non-ST elevation [place] (NSTEMI) I21.4 Polyarthritis M13.0 Diabetes E11.9 Diabetes mellitus type: type 2 Neuropathy G62.9
[2019-11-28 07:30] LABS: Basophils % 0.3 %; Eosinophils # 0.1 10^3/uL (0.0-0.8); Eosinophils % 1.3 %; Hematocrit 38.9 % (42.0-52.0); Hemoglobin 12.1 g/dL (11.7-16.6); Lymphocytes # 2.2 10^3/uL (0.8-4.8); Lymphocytes % 21.3 %; Mean Corpuscular HGB Conc 31.1 g/dL (30.0-36.0); Mean Corpuscular Hemoglobin 24.4 pg (28.0-34.0); Mean Corpuscular Volume 78.4 fL (80-94); Mean Platelet Volume 10.3 fL (7.4-10.4); Monocytes # 0.6 10^3/uL (0.2-0.9); Monocytes % 6.3 %; Neutrophils # 7.1 10^3/uL (1.8-7.7); Neutrophils % 69.9 %; Nucleated Red Blood Cells % 0 %; Platelet Count 343 10^3/cmm (130-400); Red Blood Count 4.96 10^6/uL (4.1-5.3); Red Cell Distribution Width 14.2 % (12.1-15.1); White Blood Count 10.1 10^3/uL (4.0-10.0)
[2019-11-28 07:32] LABS: Alanine Aminotransferase 29 U/L (0-41); Albumin Level 3.5 g/dL (3.5-5.2); Alkaline Phosphatase 58 IU/L (40-130); Anion Gap 13.3 (5-19); Aspartate Amino Transferase 22 U/L (0-40); Blood Urea Nitrogen 8 mg/dL (8-23); Calcium 9.7 mg/dL (8.5-10.5); Carbon Dioxide 30 mmol/L (22-29); Chloride 97 mmol/L (98-107); Creatinine Clr Calc Pharmacy 151.3695; Glomerular Filtration Rate 135.6 mL/min (90-130); Glucose 118 mg/dL (65-115); Potassium 4.3 mmol/L (3.5-5.1); Sodium 136 mmol/L (136-145); Total Bilirubin 0.3 mg/dL (0.15-1.2); Total Protein 6.5 g/dL (6.6-8.7)
[2019-11-28] MEDS: acetaminophen 325 mg Tablet 650 MG PO ×2 (07:44→22:38)
--- NOTE | 2019-11-28 07:49 | PC.NURSE ---
Patient's dubon took out this am by previous shift, nurse called to room due to patient feeling like he needs to void. Patient self catheterizes at home, this nurse took supplies to patients room. 400mL drained from bladder.
[2019-11-28] MEDS: guaiFENesin 600 mg Tablet 1200 MG PO ×2 (08:30→17:24)
[2019-11-28] MEDS: amlodipine 10 mg Tablet PO (08:30)
[2019-11-28] MEDS: fluoxetine 10 mg Capsule PO (08:30)
[2019-11-28 11:42] LABS: Glucose Point of Care 166 mg/dL (70-110)
[2019-11-28] MEDS: ipratropium 0.5 mg/2.5 mL Neb INHALATION (15:27)
--- NOTE | 2019-11-28 15:33 | ANES.PROC ---
Anesthesia Procedures Procedure/Date: 11/28/19 Epidural: Time Out Performed: Yes Consents Signed: Procedure Consent Consent: requested by attending/covering physician, from patient, risks and benefits reviewed and patient agrees to proceed Lumbar Level: L2-L3 Epidural position: sitting Epidural procedure: sterile prep of area, 1% lidocaine to numb the area and 18 g needle Additional Comments: Epidural blood Patch - 20 cc of blood sterilely obtained from R AC vein and injected into L2-3 interspace after GABRIEL to saline - patient reported near immediate relief of headache. No complications
[2019-11-28 17:24] LABS: Glucose Point of Care 137 mg/dL (70-110)
[2019-11-28 21:16] LABS: Glucose Point of Care 96 mg/dL (70-110)
[2019-11-29] VITALS (11 sets, daily range): BP systolic 129–144; BP diastolic 71–90; PULSE 63–98; RESP 15–22; TEMP 36.6–37.1; O2SAT 91–97
[2019-11-29] MEDS: enoxaparin 40 mg/0.4 mL Syringe SUBCUT (01:29)
[2019-11-29 06:32] LABS: Glucose Point of Care 108 mg/dL (70-110)
--- NOTE | 2019-11-29 06:36 | P.PN_ITS ---
Subjective Subjective: Interval history: Patient doing well this morning, headaches resolved. Having some soreness in lower back. Epidural site appears clean, no erythema, no bruising, no signs of infection. Mildly tender to palpation. Informed patient to watch out for signs/symptoms of epidural abscess including fever or increased lower extremity weakness. Vitals/I&O/Wt Last Vital Signs Temp 98.4 F 11/29/19 03:44 Pulse 63 11/29/19 03:44 Resp 19 H 11/29/19 03:44 BP 129/73 11/29/19 03:44 Pulse Ox 92 11/29/19 03:44 11/28/19 11/28/19 11/29/19 14:59 22:59 06:59 Intake Total 480 / 480 420 / 900 450 / 1350 Output Total 400 / 400 450 / 850 1575 / 2425 Balance 80 / 80 -30 / 50 -1125 / -1075 Physical Exam Narrative: EXAM NARRATIVE: Epidural site slightly tender to palpation, no erythema no bruising, no signs of purulence Urinary Catheter Management^: Moore: Cath Placed During This Visit: yes Urethral Indwelling: No Reason for Continuing Indwelling Catheter: Accurate Measurement of Urinary Output in Critically Ill Patients Urinary Catheter Date of Insertion: 11/20/19 Urinary Catheter Time of Insertion: 20:56 Data : 11/28/19 07:02 11/28/19 07:02 Attestations Medical Necessity Statement*: acute respiratory failure Coding Level of Care Code Acute Blood Donor Unit Assistant for [facility]
[2019-11-29] MEDS: guaiFENesin 600 mg Tablet 1200 MG PO ×2 (08:13→17:32)
[2019-11-29] MEDS: fluoxetine 10 mg Capsule PO (08:13)
[2019-11-29] MEDS: amlodipine 10 mg Tablet PO (08:13)
[2019-11-29] MEDS: aspirin 325 mg EC Tablet PO (08:13)
[2019-11-29] MEDS: magnesium hydroxide 30 mL UDC PO (08:14)
[2019-11-29 11:04] LABS: Glucose Point of Care 144 mg/dL (70-110)
--- NOTE | 2019-11-29 15:55 | P.PN_ITS ---
Subjective Subjective: Interval history: Overall he is doing well. No fevers or chills. No chest pain or shortness of breath. He is eating better. He is still weak and would definitely benefit from rehab. Our staff has aggressively tried to get his insurance to make a decision on improving him for rehab but his insurance company still has not made a decision on whether they will approve him for rehab or not. Medications: Reviewed: Yes Vitals/I&O/Wt Last Vital Signs Temp 98.3 F 11/30/19 04:00 Pulse 82 11/30/19 04:13 Resp 18 11/30/19 04:00 BP 135/88 11/30/19 04:00 Pulse Ox 95 11/30/19 04:13 11/29/19 11/29/19 11/30/19 14:59 22:59 06:59 Intake Total 480 / 960 480 / 960 Output Total 250 / 1710 1010 / 1710 450 / 1710 Balance 230 / -750 -530 / -750 -450 / -750 Physical Exam Narrative: EXAM NARRATIVE: General: No acute distress, Alert. Well nourished. Heart: Regular rate and rhythm. No murmurs, rubs or gallops. Normal capillary refill. Lungs: Relatively clear to auscultation. Abdomen: Positive bowel sounds. Non-tender, non-distended. No hepatosplenomegaly. No gaurding. Extremities: No clubbing, cyanosis, or edema. Negative Patricia's Urinary Catheter Management^: Moore: Cath Placed During This Visit: yes Urethral Indwelling: No Reason for Continuing Indwelling Catheter: Accurate Measurement of Urinary Output in Critically Ill Patients Urinary Catheter Date of Insertion: 11/20/19 Urinary Catheter Time of Insertion: 20:56 Data : 11/28/19 07:02 11/28/19 07:02 A&P Assessment and plan (1) Pneumonia: -Appreciate pulmonology consult. -Resolved. Patient is ready for discharge to rehab. Status: Acute Code(s): J18.9 - Pneumonia, unspecified organism (2) Influenza due to influenza virus, type A, human: -Resolved. Stop Tamiflu. Status: Acute Code(s): J10.1 - Influenza due to other identified influenza virus with other respiratory manifestations (3) Non-ST elevation [place] (NSTEMI): -Continue current care. -Appreciate cardiology's consultation. Status: Acute Code(s): I21.4 - Non-ST elevation (NSTEMI) myocardial infarction (4) Diabetes: Status: Acute Qualifiers: Diabetes mellitus type: type 2 Code(s): E11.9 - Type 2 diabetes mellitus without complications (5) Neuropathy: He will need continued follow-up with neurology. Right now his plan is to follow-up with his neurologist in [place] upon discharge and after definiti ve diagnosis has been established try to get treatments closer to home. Status: Acute Code(s): G62.9 - Polyneuropathy, unspecified (6) Axonal polyneuropathy: -Patient is in desperate need of rehab. We will continue to work with insurance to try to get this approved. Status: Acute Code(s): G62.9 - Polyneuropathy, unspecified Attestations Medical Necessity Statement*: Patient is ready for discharge to rehab awaiting approval by insurance. Coding Level of Care Code Acute Brilliandeer Looper for [facility] Diagnoses Pneumonia J18.9 Influenza due to influenza virus, type A, human J10.1 Non-ST elevation [place] (NSTEMI) I21.4 Diabetes E11.9 Diabetes mellitus type: type 2 Neuropathy G62.9 Axonal polyneuropathy G62.9
[2019-11-29 17:13] LABS: Glucose Point of Care 143 mg/dL (70-110)
[2019-11-29 21:11] LABS: Glucose Point of Care 112 mg/dL (70-110)
[2019-11-30] VITALS (10 sets, daily range): BP systolic 134–145; BP diastolic 68–91; PULSE 76–99; RESP 15–24; TEMP 35.9–36.9; O2SAT 86–98
[2019-11-30] MEDS: enoxaparin 40 mg/0.4 mL Syringe SUBCUT (01:53)
--- NOTE | 2019-11-30 07:02 | PM.PN ---
Subjective Subjective: Interval history: Patient is feeling okay. No chest pain or shortness of breath. No fevers or chills. Still requiring BiPAP at night and oxygen during the day. Still weak and requiring rehab. Unsuccessful with getting approval from insurance yesterday. Medications: Reviewed: Yes Vitals/I&O/Wt Last Vital Signs Temp 98.3 F 11/30/19 04:00 Pulse 82 11/30/19 04:13 Resp 18 11/30/19 04:00 BP 135/88 11/30/19 04:00 Pulse Ox 95 11/30/19 04:13 11/29/19 11/30/19 11/30/19 22:59 06:59 14:59 Intake Total 480 / 960 Output Total 1010 / 2160 900 / 2160 Balance -530 / -1200 -900 / -1200 Physical Exam Narrative: EXAM NARRATIVE: General: No acute distress, Alert. Well nourished. Heart: Regular rate and rhythm. No murmurs, rubs or gallops. Normal capillary refill. Lungs: Relatively clear to auscultation. Abdomen: Positive bowel sounds. Non-tender, non-distended. No hepatosplenomegaly. No gaurding. Extremities: No clubbing, cyanosis, or edema. Negative Patricia's Urinary Catheter Management^: Moore: Cath Placed During This Visit: yes Urethral Indwelling: No Reason for Continuing Indwelling Catheter: Accurate Measurement of Urinary Output in Critically Ill Patients Urinary Catheter Date of Insertion: 11/20/19 Urinary Catheter Time of Insertion: 20:56 Data : 11/28/19 07:02 11/28/19 07:02 A&P Assessment and plan (1) Pneumonia: -Appreciate pulmonology consult. -Resolved. Patient is ready for discharge to rehab. Status: Acute Code(s): J18.9 - Pneumonia, unspecified organism (2) Influenza due to influenza virus, type A, human: -Resolved. Stop Tamiflu. Status: Acute Code(s): J10.1 - Influenza due to other identified influenza virus with other respiratory manifestations (3) Non-ST elevation [place] (NSTEMI): -Continue current care. -Appreciate cardiology's consultation. Status: Acute Code(s): I21.4 - Non-ST elevation (NSTEMI) myocardial infarction (4) Diabetes: Status: Acute Qualifiers: Diabetes mellitus type: type 2 Code(s): E11.9 - Type 2 diabetes mellitus without complications (5) Neuropathy: He will need continued follow-up with neurology. Right now his plan is to follow-up with his neurologist in [place] upon discharge and after definitive diagnosis has been established try to get treatments closer to home. Status: Acute Code(s): G62.9 - Polyneuropathy, unspecified (6) Axonal polyneuropathy: -Patient is in desperate need of rehab. We will continue to work with insurance to try to get this approved. -I discussed with him that if his insurance will not give approval today we will then try to transition home today with arranging home health and physical therapy and BiPAP at home. No doubt he would greatly benefit from a rehab facility. If we discharge home later on today may still be able to get him to rehab later next week if we can get his insurance to approve it. Status: Acute Code(s): G62.9 - Polyneuropathy, unspecified Attestations Medical Necessity Statement*: Plans for discharge to rehab today. Coding Level of Care Code Acute [employer] for [facility] Fwd Diagnoses Pneumonia J18.9 Influenza due to influenza virus, type A, human J10.1 Non-ST elevation NH (NSTEMI) I21.4 Diabetes E11.9 Diabetes mellitus type: type 2 Neuropathy G62.9 Axonal polyneuropathy G62.9
[2019-11-30] MEDS: acetaminophen 325 mg Tablet 650 MG PO (07:58)
[2019-11-30] MEDS: aspirin 325 mg EC Tablet PO (09:03)
[2019-11-30] MEDS: guaiFENesin 600 mg Tablet 1200 MG PO ×2 (09:03→17:44)
[2019-11-30] MEDS: amlodipine 10 mg Tablet PO (09:03)
[2019-11-30 11:41] LABS: Glucose Point of Care 106 mg/dL (70-110)
[2019-11-30 17:29] LABS: Glucose Point of Care 126 mg/dL (70-110)
--- NOTE | 2019-12-26 08:28 | P.DS_ITS ---
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 Reason for Visit Reason for Visit: Reason For Visit: cp Hospital Course Discharge Summary: Patient was mid to the hospital for respiratory failure secondary to pneumonia and influenza. He required BiPAP for several days in the ICU. He was placed on IV antibiotics and Tamiflu. Pulmonology was consulted. Patient had some elevation in his troponin and cardiology was consulted as well. This was felt to be more from a cardiac strain process. Patient has a severe progressive axonal neuropathy which contributed to his difficulty being weaned from the BiPAP. Gradually we were successful with this and able to transfer him to the floor. He continued to improve over the next several days. Patient required physical therapy at rehab and was subsequently transferred upon discharge. Physical Exam Urinary Catheter Management^: Moore: Cath Placed During This Visit: yes Urethral Indwelling: No Reason for Continuing Indwelling Catheter: Accurate Measurement of Urinary Output in Critically Ill Patients Urinary Catheter Date of Insertion: 11/20/19 Urinary Catheter Time of Insertion: 20:56 Discharge Data Data Completed and Pending: Completed Studies During Hospitalization Category Date Time Status CT abdomen pelvis w con* 00073 Rout ine Cat Scan 11/22/19 17:[address] angio chest PE protcl [id number] Urge nt Cat Scan 11/20/19 17:[address] head wo/w con [id number] Routine Cat Scan 11/27/19 14:38 Completed FL sniff test 760 00 Routine Exams 11/26/19 08:54 Completed CV echo wo/w cont rast [id number] Routine Ultrasound 11/23/19 18:14 Completed US/CV paperwork R outine Ultrasound 11/23/19 Completed Pending at discharge Category Date Time Status Lymes Disease Ant ibodies CSF Routin e Lab 11/23/19 15:48 Results Miscellaneous Fanta t Routine Lab 11/23/19 15:48 Results Mycobacteria, Cul ture w/Fluor Routi ne Lab 11/23/19 15:48 Received Oligoclonal Bands IGG, CSF Routine Lab 11/23/19 15:48 Results Vitals: Last Vital Signs Temp 96.7 F L 11/30/19 18:09 Pulse 99 11/30/19 18:09 Resp 16 11/30/19 18:09 BP 145/91 11/30/19 18:09 Pulse Ox 97 11/30/19 18:09 Discharge Plan Discharge Patient Disposition: Xfer SNF Condition: Stable Prescriptions: New acetaminophen 325 mg Tablet 650 mg PO Q4H PRN (Reason: Mild Pain Or Increase Temp) Qty: 60 RF: 0 alprazolam 1 mg Tablet 1 mg PO Q8H PRN (Reason: Anxiety) Qty: 60 RF: 0 Milk of Magnesia 400 mg/5 mL Suspension 30 ml PO BID PRN (Reason: Constipation) Qty: 120 RF: 0 aspirin 325 mg Tablet,Delayed Release (Dr/Ec) 325 mg PO DAILY Qty: 30 RF: 0 amlodipine 10 mg Tablet 10 mg PO DAILY Qty: 30 RF: 0 fluoxetine 10 mg Capsule 10 mg PO DAILY Qty: 30 RF: 0 Continued ondansetron 4 mg Tablet,Disintegrating 4 mg PO Q6H PRN (Reason: Nausea And Vomiting) RF: 0 temazepam 15 mg PO BEDTIME PRN (Reason: Sleep) RF: 0 Discontinued albuterol sulfate 90 mcg/actuation Hfa Aerosol Inhaler 2 puff INHALATION QID PRN (Reason: Cough) RF: 0 doxycycline hyclate 100 mg tablet 1 tab PO BID RF: 0 hydrocodone-acetaminophen tablet See Rx Instructions .ROUTE .COMPLEX PRN (Reason: Pain) RF: 0 prednisone 20 mg 20 mg PO DAILY RF: 0 tamsulosin capsule 0.4 mg PO BEDTIME RF: 0 Discharge Orders: Discharge Order (Routine); Ordered 11/29/19 Ordered By: Zeb Brownlee Other Ambulatory Orders: DME: BIPAP (Order) Location: None Selected Ordered By: Edna Rhoades DME: Oxygen (Order) Location: None Selected Ordered By: Edna Rhoades Referrals: [facility] [Outside] Elsa Crawford MD [Physician] - 12/19/19 11:30 am (Referral to Dr. Crawford for neuromuscular disorder) Suzanne Saldivar MD [Physician] - 12/17/19 9:40 am Discharge Diet: Diabetic Discharge Activity: Resume usual activity Patient Instructions: Acetaminophen (By mouth), Alprazolam (By mouth), Fluoxetine (By mouth), Aspirin (By mouth), Amlodipine (By mouth), Magnesium Hydroxide (By mouth), Headache, Guillain-Beaumont Syndrome (DC), Idiopathic Intracranial Hypertension (DC) Activity Restrictions/Additional Instructions: -Discharged to rehab with medical claims representative as attending. -Supply the patient with catheters for self cath when needed. -BiPAP with current hospital settings to be used at night when sleeping and during the day as needed for his neuromuscular disorder with respiratory compromise. -Physical therapy and Occupational Therapy to assess and treat -Follow-up with Dr. Saldivar with pulmonology in 1 to 2 weeks. Please make a referral appointment to Dr. Crawford in the next 2 weeks. Discharge Date/Time: 11/30/19 17:50 Discharge Attestations Time Spent in Discharge Care*: greater than 30 min Quality Metrics Clinical Quality Measures During this hospital stay, did patient experience: None Coding Level of Care Code Acute [employer] for [employer] Fwd Diagnoses Pneumonia J18.9 Influenza due to influenza virus, type A, human J10.1 Non-ST elevation PA (NSTEMI) I21.4 Diabetes E11.9 Diabetes mellitus type: type 2 Neuropathy G62.9 Axonal polyneuropathy G62.9
[2020-02-06 08:35] LABS: Miscellaneous Test See Scanned Lab Rpt
== END 2019-11-30 17:50 | disposition skilled nursing facility (03) | DRG 193 ==
LOC: ER 17:52 → ICU 22:19 → MEDSURG 11-26 17:55
PROVIDERS: Internal Medicine Critical Care Medicine; Student in an Organized Health Care Education/Training Program; Admitting Provider Family Medicine; Emergency Provider Family Medicine; Family Provider Family Medicine; PCP Family Medicine; Visit Provider Family Medicine
DX: J10.00 Influenza due to other identified influenza virus with unspecified type of pneumonia (principal); I21.A1 Myocardial infarction type 2; J96.22 Acute and chronic respiratory failure with hypercapnia; J96.21 Acute and chronic respiratory failure with hypoxia; E87.1 Hypo-osmolality and hyponatremia; I10 Essential (primary) hypertension; E78.5 Hyperlipidemia, unspecified; E53.8 Deficiency of other specified B group vitamins; E55.9 Vitamin D deficiency, unspecified; M13.0 Polyarthritis, unspecified; Z79.52 Long term (current) use of systemic steroids; Z79.899 Other long term (current) drug therapy; D64.9 Anemia, unspecified; G97.1 Other reaction to spinal and lumbar puncture; Y84.4 Aspiration of fluid as the cause of abnormal reaction of the patient, or of later complication, without mention of misadventure at the time of the procedure; Y92.239 Unspecified place in hospital as the place of occurrence of the external cause; G93.2 Benign intracranial hypertension; E11.42 Type 2 diabetes mellitus with diabetic polyneuropathy; Z79.82 Long term (current) use of aspirin
CPT/HCPCS: 12345; 36415; 36416; 36600; 51702; 70470; 71275; 74177; 76000; 80048; 80053; 80061; 80500; 81001; 82042; 82803; 82805; 82945; 82962; 83605; 83615; 83880; 84157; 84484; 85025; 85378; 86140; 86592; 86617; 87040; 87070; 87075; 87077; 87086; 87186; 87205; 87804; 89050; 93005; 94010; 94640; 94660; 96372; 96375; 97110; 97161; 97530; 99284; C8929; J0131; J1650; J1815; J1885; J1956; J2001; J2250; J2270; J2405; J2543; J7030; J7512; J7626; J7644; Q9956; Q9967

== ENCOUNTER 2019-11-28 11:35 | Outpatient (CLI) | payer BC, SELFPAY | END 2019-11-28 11:40 | disposition home or self-care (01) | LOC: RADWPI 05-13 11:35 | PROVIDERS: PCP Family Medicine; Visit Provider Family Medicine | DX: R07.9 Chest pain, unspecified (principal); G83.9 Paralytic syndrome, unspecified; G62.9 Polyneuropathy, unspecified | CPT/HCPCS: 62273 ==

== ENCOUNTER 2020-09-03 13:56 | Outpatient (CLI) | payer BC, MEDICARE, SELFPAY ==
[2020-09-03 14:46] LABS: ABG PCO2 52.2 mmHg (35-45); ABG PH Result 7.39 (7.35-7.45); Alveolar-Arterial Oxygen Gradi 12.1 mmHg (5-10); Arterial Blood Gas Hematocrit 46.4 % (42-52); Base Excess ABG 5.2 mmol/L (-2.0-2.0); Blood Gas Allen Test Pos; Blood Gas Operator Identificat glc; Blood Gas Sample Site Radial, left; Blood Gas Sample Type Arterial; Carboxyhemoglobin 0.2 %THgb (0.4-20.1); HCO3 ABG 31.7 mmol/L (22-26); HGB O2 Sat 92.5 % (95-100); Ionized Calcium Level - ABG 1.2 mmol/L (1.1-1.4); Oxygen Device NC; Oxygen Saturation ABG 93.7; PO2 ABG 70.5 mmHg (80.0-100.0); Potassium Level - ABG 4.3 mmol/L (3.5-5.0); Total Hemoglobin 15.2 g/dL (14-18)
== END 2020-09-03 13:57 | disposition home or self-care (01) ==
PROVIDERS: PCP Family Medicine; Visit Provider Family Medicine
DX: G12.21 Amyotrophic lateral sclerosis (principal)
CPT/HCPCS: 36600; 80051; 82330; 82805; 83605

== ENCOUNTER → 2021-03-05 14:57 | Outpatient (BNVA) | payer BC, SELFPAY | PROVIDERS: PCP Family Medicine; Visit Provider Specialist | DX: G12.21 Amyotrophic lateral sclerosis (principal) | CPT/HCPCS: 99205 ==